=== PATIENT | female | born 1980 | race Hispanic/Latino ===

== ENCOUNTER 2019-01-10 16:56 | Inpatient (IN) | payer MEDICAID ==
[2019-01-10] MEDS ORDERED: AMBIEN PO PRN (18:41)
[2019-01-10] MEDS: MORPHINE IV PRN (23:01)
[2019-01-10] MEDS: LEVAQUIN 500MG/100ML 500 MG/100 ML BAG IV SCH (23:02)
[2019-01-10] MEDS: ZOFRAN IV PRN (23:10)
[2019-01-11] MEDS: MORPHINE IV PRN ×4 (04:11→23:29)
[2019-01-11] MEDS: ZOFRAN IV PRN (04:18)
[2019-01-11] MEDS ORDERED: ZOFRAN IV PRN (07:47)
[2019-01-11] MEDS ORDERED: LACTATED RINGERS 1,000 ML IV SCH (08:00)
[2019-01-11] MEDS ORDERED: LACTATED RINGERS 1,000 ML ONE (08:26)
--- NOTE | 2019-01-11 08:31 | Anesthesia Day of Surgery ---
Anesthesia Day of Surgery - Day of Surgery Patient Examined: Yes Patient H&P Reviewed: Yes Patient is NPO: Yes
[2019-01-11] MEDS ORDERED: OMNIPAQUE 300 MG/50 ML (CATH LAB) IV ONE (08:34)
--- NOTE | 2019-01-11 08:34 | Anesthesia Consultation ---
Anesthesia Consult and Med Hx Date of service: 01/11/19 - Airway Anesthetic Teeth Evaluation: Good ROM Head & Neck: Adequate Mental/Hyoid Distance: Inadequate Mallampati Class: Class II Intubation Access Assessment: Probably Good - Pre-Operative Health Status ASA Pre-Surgery Classification: ASA3 Proposed Anesthetic Plan: General - Pulmonary Hx Smoking: Yes Hx Asthma: No COPD: No Hx Pneumonia: No Hx Sleep Apnea: Yes - Cardiovascular System Hx Hypertension: Yes (On amlodipine) Hx Coronary Artery Disease: No Hx Percutaneous Transluminal Coronary Angioplasty (PTCA): No Hx Pacemaker: No Hx Valvular Heart Disease: No Hx Peripheral Vascular Disease: No - Central Nervous System Hx Neuromuscular Disorder: Yes (Plantar fasciitis-on Lyrica) Hx Seizures: No CVA: No Hx Psychiatric Problems: No - Gastrointestinal Hx Ulcer: No Hx Gastroesophageal Reflux Disease: No - Endocrine Hx Renal Disease: No Hx End Stage Renal Disease: No Hx Cirrhosis: No Hx Liver Disease: No Hx Hyperthyroidism: No - Hematic Hx Anemia: No Hx Sickle Cell Disease: No - Other Systems Hx Cancer: No Hx Obesity: Yes - Additional Comments Anesthesia Medical History Comments: Had hysterectomy. Has birthmark under left eye which appears as a bruise
--- NOTE | 2019-01-11 08:55 | Post Operative Note ---
Date of procedure: 01/11/19 Pre-op diagnosis: r upj stone Post-op diagnosis: same Findings: same Procedure: cysto r rpg stent Anesthesia: GETA Surgeon: SKY VILLARREAL Estimated blood loss: none Pathology: list (urine) Specimen disposition: to lab Condition: stable Disposition: PACU
--- NOTE | 2019-01-11 08:57 | Discharge Summary ---
Short Stay Discharge Plan Activity: other (no straining ) Weight Bearing Status: Full Weight Bearing Diet: low fat, low cholesterol, low salt Special Instructions: other (inc fluids ) Durable Medical Equipment Needed Upon Discharge: other (has j stent ) Follow up with: TREVON TORRES MD [Primary Care Provider] - 7 Days SKY VILLARREAL MD [Staff Physician] - 7 Days
[2019-01-11] MEDS ORDERED: NS IV ONE (09:05)
[2019-01-11] MEDS ORDERED: GENTAMICIN IV ONE (09:05)
[2019-01-11] MEDS ORDERED: SUBLIMAZE ONE ×3 (09:09→09:38)
[2019-01-11] MEDS ORDERED: DIPRIVAN 10 MG/ML IV ONE (09:09)
[2019-01-11] MEDS ORDERED: XYLOCAINE MPF 2% ONE (09:10)
[2019-01-11] MEDS ORDERED: ZOFRAN ONE (09:10)
[2019-01-11] MEDS: SUBLIMAZE IV PRN ×4 (09:18→09:51)
[2019-01-11] MEDS ORDERED: DILAUDID ONE (10:10)
[2019-01-11] MEDS: DILAUDID IV PRN ×3 (10:10→20:45)
--- NOTE | 2019-01-11 10:22 | Operative Report ---
PREOPERATIVE DIAGNOSES: Severe right flank pain, intermittent nausea and vomiting, right renal obstruction. POSTOPERATIVE DIAGNOSES: Severe right flank pain, intermittent nausea and vomiting, right renal obstruction. PROCEDURES: Cystoscopy, right retrograde, right double-J stent. SURGEON: Brandon Santos MD ANESTHESIA: General. FINDINGS: This is a woman who presented yesterday with severe pain, nausea and vomiting and intermittent chills. She was admitted to the hospital, now presents for stent. She is afebrile. DESCRIPTION OF PROCEDURE: The patient was brought to the operating room and placed on the operating table. Following induction of anesthesia, placed in lithotomy position, prepped and draped in usual sterile fashion. Cystourethroscopy showed some debris in the bladder. A right retrograde was done, showed a UPJ stone on the right side. Stone was well visualized. A wire coiled in the kidney. There was a little bit of an angulation at the ureterovesical junction. We used an angled-tip open-ended catheter. A stent coiled in the kidney and bladder. The patient tolerated the procedure well. Urine was obtained for culture, brought to recovery room in stable condition. JOB# [id number] KHALIF/VIRY
[2019-01-11] MEDS ORDERED: GENTAMICIN 160 MG in NACL 0.9% 100 ML IV SCH (10:30)
--- NOTE | 2019-01-11 11:16 | Post Anesthesia Evaluation ---
- Post Anesthesia Evaluation Patient Participated: Yes Airway Patent: Yes Stable Respiratory Function: Yes Nausea/Vomiting: No Temp > 96.8F: Yes Pain Manageable: Yes Adequeate Hydration: Yes Anesthesia Complications: No Block Receding Appropriately: Not Applicable Patient on Ventilator: No
[2019-01-11] MEDS ORDERED: DILAUDID IV PRN (13:33)
[2019-01-11] MEDS ORDERED: DILAUDID IV ONE (13:35)
--- NOTE | 2019-01-11 17:49 | Cat Scan Report ---
CT abdomen pelvis wo con INDICATION / CLINICAL INFORMATION: verify stent placement, abdominal pain. TECHNIQUE: Noncontrast CT of the abdomen and pelvis with multiplanar reformats. All CT scans at this location ar e performed using CT dose reduction for ALARA by means of automated exposure control. COMPARISON: None FINDINGS: A double-J ureteral stent extends from the right renal pelvis to the bladder, with the distal pigtail coiled adjacent to the ureteral orifice. A 0.9 cm calculus is seen higher in the collecting system o f the right kidney. No left renal or ureteral calculi. No bladder calculus. Within the limitations imposed by noncontrast technique, the liver, spleen, pancreas, and adrenals ar e unremarkable. The gallbladder is surgically absent. No abnormality of significance is detected in the stomach, small or large bowel. The appendix is norm al. No free abdominal or pelvic fluid. No organized fluid collection or pneumoperitoneum. The uterus is s urgically absent. No abnormal adnexal mass. IMPRESSION: 1. Right renal calculus. Double-J ureteral stent is in satisfactory position. Signer Name: Jose L Kendall MD Signed: 01/11/2019 5:44 PM Workstation Name: [id number]
[2019-01-11] MEDS: LEVAQUIN 500MG/100ML 500 MG/100 ML BAG IV SCH (20:45)
[2019-01-11] MEDS: DITROPAN PO SCH (23:37)
[2019-01-12] MEDS: DILAUDID IV PRN ×3 (02:13→13:06)
[2019-01-12] MEDS: DITROPAN PO SCH ×2 (08:43→13:06)
[2019-01-12] MEDS: MORPHINE IV PRN ×2 (10:11→15:51)
[2019-01-12] MEDS: ZOFRAN IV PRN (12:08)
[2019-01-12] MEDS ORDERED: PYRIDIUM PO SCH (15:00)
--- NOTE | 2019-01-12 15:00 | Consultation ---
History of Present Illness - Reason for Consult Consult date: 01/12/19 Possible nephrostomy tube - History of Present Illness 38 year old female who presented with right sided UPJ stone with UTI. Status post ureteral stenting by Dr. Santos. Has pain in the left flank, dysuria, and lower pelvic discomfort after the procedure. Wants the "stent out". Vascular and interventional radiology consulted. Past History Past Medical History: hypertension, other (TITUS with bipap ; morbid obesity ; plantar fascitis) Past Surgical History: hysterectomy Social history: smoking Family history: no significant family history Medications and Allergies Allergies Allergy/AdvReac Type Severity Reaction Status Date / Time amoxicillin AdvReac Shortness Verified 01/10/19 17:08 of Breath, HIVES, RASH, SWELLING clavulanic acid AdvReac Shortness Verified 01/10/19 17:08 [From Augmentin] of Breath, RASH, HIVES , Penicillins AdvReac Shortness Verified 01/10/19 17:09 of Breath, HIVES, RASH, SWELLING Home Medications Medication Instructions Recorded Confirmed Last Taken Type Ciprofloxacin HCl [Ciprofloxacin 500 mg PO BID 01/12/19 01/12/19 Unknown History TAB] Cyclobenzaprine [Flexeril 10 MG 1 tab PO TID 01/12/19 01/12/19 Unknown History TAB] Gabapentin [Neurontin] 300 mg PO Q8HR 01/12/19 01/12/19 Unknown History Ibuprofen [Motrin] 800 mg PO Q8HR PRN 01/12/19 01/12/19 Unknown History Ketorolac [Toradol] 10 mg PO Q12H PRN 01/12/19 01/12/19 Unknown History [place] 5-325 mg TAB 1 tab PO Q8HR 01/12/19 01/12/19 Unknown History Tamsulosin 0.4 mg PO HS 01/12/19 01/12/19 Unknown History amLODIPine 10 mg PO DAILY 01/12/19 01/12/19 Unknown History levoFLOXacin [Levofloxacin] 500 mg PO DAILY 01/12/19 01/12/19 Unknown History Active Meds: Active Medications Hydromorphone HCl (Dilaudid) 1 mg IV Q6H PRN PRN Reason: Pain , Severe (7-10) Last Admin: 01/12/19 13:06 Dose: 1 mg Documented by: Levofloxacin/Dextrose (Levaquin 500mg/100ml) 500 mg in 100 mls @ 100 mls/hr IV Q24H ROSALINDA; Protocol Last Admin: 01/11/19 20:45 Dose: 100 mls/hr Documented by: Lactated Ringer's (Lactated Ringers) 1,000 mls @ 125 mls/hr IV DIRECT ROSALINDA Last Admin: 01/11/19 20:50 Dose: 125 mls/hr Documented by: Morphine Sulfate (Morphine) 2 mg IV Q6H PRN PRN Reason: Pain, Moderate (4-6) Last Admin: 01/12/19 10:11 Dose: 2 mg Documented by: Ondansetron HCl (Zofran) 8 mg IV Q8HR PRN PRN Reason: NAUSEA & VOMITING Last Admin: 01/12/19 12:08 Dose: 4 mg Documented by: Oxybutynin Chloride (Ditropan) 5 mg PO TID ROSALINDA Last Admin: 01/12/19 13:06 Dose: 5 mg Documented by: Phenazopyridine HCl (Pyridium) 200 mg PO Q8HR ROSALINDA Zolpidem Tartrate (Ambien) 10 mg PO QHS PRN PRN Reason: Insomnia Last Admin: 01/10/19 23:02 Dose: 10 mg Documented by: Review of Systems All systems: negative (see HPI) Exam - Constitutional Vitals: Temp Pulse Resp BP Pulse Ox 97.6 F 79 18 111/75 95 01/12/19 11:58 01/12/19 11:58 01/12/19 11:58 01/12/19 11:58 01/12/19 11:58 General appearance: Present: no acute distress - EENT Eyes: Present: EOM intact ENT: hearing intact - Respiratory Respiratory effort: normal - Abdominal General gastrointestinal: Present: other (pelvic pain, left flank pain) - Psychiatric Psychiatric: appropriate mood/affect, cooperative Assessment and Plan 38 year old female with UTI and right renal stone status post right ureteral stent. Do not recommend percutaneous nephrostomy tube placement with indwelling ureteral stent. The kidney is decompressed and the patient is severely morbidly obese both of which may percutaneous nephrostomy incredibly difficult and really only appropriate for a failed stent placement or possibly for a PCNL access. Left flank pain preceded symptoms and is unlikely to be related to ureteral stent placement. ?LBP Patient is complaining of dysuria, and bladder discomfort. Recommend pyridine, follow-up with urologist for lithotripsy, and ultimately stent removal once stone has been removed. Do not recommend nephrostomy tube placement.
[2019-01-12 17:00] VITALS: BP 128/63
== END 2019-01-12 16:15 | disposition home or self-care (01) | DRG 690 ==
LOC: 3A 16:56 → UNDOADMIN 16:56 → 3B-SURG 20:53
PROVIDERS: ADMIT Urology; ATTEND Urology
PROC: 0T768DZ Dilation of Right Ureter with Intraluminal Device, Via Natural or Artificial Opening Endoscopic (ICD-10-PCS; principal; 2019-01-11)
PROC: BT1D1ZZ Fluoroscopy of Right Kidney, Ureter and Bladder using Low Osmolar Contrast (ICD-10-PCS; 2019-01-11)
DX: N13.6 Pyonephrosis (principal); I10 Essential (primary) hypertension; G47.33 Obstructive sleep apnea (adult) (pediatric); E66.01 Morbid (severe) obesity due to excess calories; Z68.41 Body mass index [BMI] 40.0-44.9, adult; Z90.710 Acquired absence of both cervix and uterus; Z88.1 Allergy status to other antibiotic agents; Z88.0 Allergy status to penicillin; Z88.8 Allergy status to other drugs, medicaments and biological substances; Z79.899 Other long term (current) drug therapy
CPT/HCPCS: 74176; 74420; 87086; G0378; C1758; C1769; C2617; J1170; J1580; J1956; J2270; J2405; J2704; J3010; J7120; Q9967

== ENCOUNTER 2019-05-23 22:31 | Emergency (ER) | payer MEDICAID ==
[2019-05-24 04:24] LABS: Basophils # (Auto) 0.1 K/mm3 (0.0-0.1); Basophils % (Auto) 0.6 % (0.0-1.8); Eosinophils # (Auto) 0.2 K/mm3 (0.0-0.4); Eosinophils % (Auto) 2.3 % (0.0-4.3); Hematocrit 38.7 % (30.3-42.9); Hemoglobin 13.6 gm/dl (10.1-14.3); Mean Corpuscular HGB Conc 35 % (30-34); Mean Corpuscular Volume 89 fl (79-97); Monocytes # (Auto) 0.6 K/mm3 (0.0-0.8); Monocytes % (Auto) 6.6 % (0.0-7.3); Platelet Count 176 K/mm3 (140-440); Red Blood Count 4.33 M/mm3 (3.65-5.03); Red Cell Distribution Width 13.2 % (13.2-15.2)
[2019-05-24 04:29] VITALS: BP 139/71
[2019-05-24 04:50] LABS: Alanine Aminotransferase 15 units/L (7-56); Albumin 4.2 g/dL (3.9-5); BUN/Creatinine Ratio 19; Blood Urea Nitrogen 15 mg/dL (7-17); Hemolysis Index 7
[2019-05-24] MEDS ORDERED: KETOROLAC 30 MG/1 ML INJ IV ONE (05:06)
[2019-05-24] MEDS ORDERED: SODIUM CHLORIDE 0.9% 1000 ML 2,000 ML IV ONE (05:06)
[2019-05-24] MEDS ORDERED: ONDANSETRON 4 MG/2 ML INJ IV ONE (05:07)
--- NOTE | 2019-05-24 05:10 | Emergency Department Report ---
ED Abdominal Pain HPI - General Chief Complaint: Abdominal Pain Stated Complaint: PAINFUL URINATION Time Seen by Provider: 05/24/19 03:44 Source: patient Mode of arrival: Ambulatory Limitations: No Limitations - History of Present Illness Complaint: abdominal pain -: Gradual, days(s) Location: R flank Radiation: none Migration to: no migration, suprapubic Severity: mild Severity scale (0 -10): 2 Quality: aching Consistency: intermittent Improves With: nothing Worsens With: nothing Context: other (Reports hx of kidney stones. Reports symptoms feel similar to past kidney stone attacks. Reports hx of being discharged from the ER to home with a urine mathis because of urinary retention. Reports followed by Dr. Villarreal urology) Associated Symptoms: nausea, other (decreased urine output). denies: vomiting, diarrhea, fever, chills, constipation, dysuria, hematemesis, hematochezia, melena, hematuria, anorexia, syncope - Related Data Home Medications Medication Instructions Recorded Confirmed Last Taken Ciprofloxacin HCl [Ciprofloxacin 500 mg PO BID 01/12/19 01/12/19 Unknown TAB] Cyclobenzaprine [Flexeril 10 MG 1 tab PO TID 01/12/19 01/12/19 Unknown TAB] Gabapentin [Neurontin] 300 mg PO Q8HR 01/12/19 01/12/19 Unknown Ibuprofen [Motrin] 800 mg PO Q8HR PRN 01/12/19 01/12/19 Unknown Ketorolac [Toradol] 10 mg PO Q12H PRN 01/12/19 01/12/19 Unknown [place] 5-325 mg TAB 1 tab PO Q8HR 01/12/19 01/12/19 Unknown Tamsulosin 0.4 mg PO HS 01/12/19 01/12/19 Unknown amLODIPine 10 mg PO DAILY 01/12/19 01/12/19 Unknown levoFLOXacin [Levofloxacin] 500 mg PO DAILY 01/12/19 01/12/19 Unknown Previous Rx's Medication Instructions Recorded Last Taken Type HYDROcodone/APAP 5-325 [[place] 1 each PO Q6HR PRN #8 tablet 05/24/19 Unknown Rx 5/325] Ibuprofen [Motrin 600 MG tab] 600 mg PO Q6H PRN #24 tablet 05/24/19 Unknown Rx Phenazopyridine [Pyridium] 200 mg PO TID #6 tab 05/24/19 Unknown Rx Sulfamethoxazole/Trimethoprim 1 each PO BID #14 tablet 05/24/19 Unknown Rx [Bactrim DS TAB] Tamsulosin [Flomax] 0.4 mg PO QDAY #14 cap 05/24/19 Unknown Rx Allergies Allergy/AdvReac Type Severity Reaction Status Date / Time amoxicillin Allergy Anaphylaxis Verified 05/23/19 22:33 clavulanic acid Allergy Anaphylaxis Verified 05/23/19 22:33 [From Augmentin] Penicillins Allergy Anaphylaxis Verified 05/23/19 22:33 ED Review of Systems ROS: Stated complaint: PAINFUL URINATION Other details as noted in HPI Other: GENERAL: No weight change, fatigue, fever, chills, or night sweats SKIN: No changes in skin or hair, no itching, no rashes, no jaundice HEAD: No trauma EYES: No blurriness, tearing, itching, acute visual loss, conjunctival discoloration, or scleral icterus EARS: No hearing loss, tinnitus, vertigo, or earache NOSE: No rhinorrhea, stuffiness, sneezing, itching, or epistaxis MOUTH: No bleeding gums, hoarseness, sore throat, or swelling CARDIAC: No new murmur, chest pain, palpitations, dyspnea on exertion, orthopnea, PND, or edema RESPIRATORY: No shortness of breath, wheeze, cough, sputum production, hemoptysis GI: Right flank pain. nausea. Denies vomiting, dysphagia, diarrhea, constipation, hematemesis, melena, hematochezia URINARY: Decreased urine output. No frequency, urgency, polyuria, dysuria, hematuria, or incontinence MUSCULOSKELETAL: No muscle weakness, joint stiffness, decrease in range of motion, redness, swelling NEUROLOGIC: No headache, syncope, loss of sensation, numbness, tingling, tremors, weakness, paralysis, seizures HEMATOLOGIC: No anemia, easy bruising, bleeding, petechiae, or purpura ENDOCRINE: No hot or cold intolerance, sweating, polyuria, polydipsia or, polyphagia no thyroid problems PSYCHIATRIC: No change in mood, no anxiety, no depression ED Past Medical Hx - Past Medical History Previous Medical History?: Yes Hx Hypertension: Yes (On amlodipine) Hx Congestive Heart Failure: No Hx Diabetes: No Hx Deep Vein Thrombosis: No Hx Liver Disease: No Hx Renal Disease: No Hx Sickle Cell Disease: No Hx Arthritis: No Hx Seizures: No Hx Kidney Stones: Yes Hx Asthma: Yes Hx COPD: No Hx Tuberculosis: No Hx Dementia: No Hx HIV: No - Surgical History Past Surgical History?: Yes Hx Coronary Stent: No Hx Open Heart Surgery: No Hx Pacemaker: No Hx Cholecystectomy: Yes Hx Appendectomy: No Hx Breast Surgery: No Additional Surgical History: Lithrotripsy, Hysterectomy, Left rotator cuff repair - Social History Smoking Status: Current Every Day Smoker Substance Use Type: None - Medications Home Medications: Home Medications Medication Instructions Recorded Confirmed Last Taken Type Ciprofloxacin HCl [Ciprofloxacin 500 mg PO BID 01/12/19 01/12/19 Unknown History TAB] Cyclobenzaprine [Flexeril 10 MG 1 tab PO TID 01/12/19 01/12/19 Unknown History TAB] Gabapentin [Neurontin] 300 mg PO Q8HR 01/12/19 01/12/19 Unknown History Ibuprofen [Motrin] 800 mg PO Q8HR PRN 01/12/19 01/12/19 Unknown History Ketorolac [Toradol] 10 mg PO Q12H PRN 01/12/19 01/12/19 Unknown History [place] 5-325 mg TAB 1 tab PO Q8HR 01/12/19 01/12/19 Unknown History Tamsulosin 0.4 mg PO HS 01/12/19 01/12/19 Unknown History amLODIPine 10 mg PO DAILY 01/12/19 01/12/19 Unknown History levoFLOXacin [Levofloxacin] 500 mg PO DAILY 01/12/19 01/12/19 Unknown History HYDROcodone/APAP 5-325 [[place] 1 each PO Q6HR PRN #8 tablet 05/24/19 Unknown Rx 5/325] Ibuprofen [Motrin 600 MG tab] 600 mg PO Q6H PRN #24 tablet 05/24/19 Unknown Rx Phenazopyridine [Pyridium] 200 mg PO TID #6 tab 05/24/19 Unknown Rx Sulfamethoxazole/Trimethoprim 1 each PO BID #14 tablet 05/24/19 Unknown Rx [Bactrim DS TAB] Tamsulosin [Flomax] 0.4 mg PO QDAY #14 cap 05/24/19 Unknown Rx ED Physical Exam - General Limitations: No Limitations - Other Other exam information: GENERAL: Patient in no acute distress HEAD: Normocephalic, atraumatic EYES: PERRLA, EOM intact, no scleral icterus, no conjunctival hemorrhage, visual reyes and acuity wnl NOSE: No tenderness, discharge, sinus tenderness MOUTH: No erythema, bleeding, exudate HEART: Regular rate and rhythm, no murmur, S1-S2 are auscultated, no edema, puls es are symmetric LUNGS: No respiratory distress. Bilateral breath sounds, No tachypnea, No retractions, No wheezing, rales, rhonchi ABDOMEN: Normal bowel sounds, abdomen soft, no tenderness, no rebound, no guarding, no distention, no masses, no CVA tenderness MUSCULOSKELETAL: Normal joint range of motion, no redness, no swelling, no tenderness NEUROLOGIC: GCS 15, Alert and Oriented x3, Cranial nerves intact, normal sensation, normal strength, no cerebellar deficit, NIHSS 0 SKIN: Skin is warm and dry, no wounds, no rashes ED Course Vital Signs 05/23/19 05/24/19 05/24/19 22:37 03:36 03:45 Temperature 98.9 F Pulse Rate 103 H 86 88 Respiratory 20 15 19 Rate Blood Pressure 169/105 137/74 Blood Pressure [Right] O2 Sat by Pulse 98 95 97 Oximetry 05/24/19 05/24/19 05/24/19 03:51 03:55 04:00 Temperature Pulse Rate 90 91 H Respiratory 18 17 27 H Rate Blood Pressure 139/86 Blood Pressure 137/74 [Right] O2 Sat by Pulse 100 94 Oximetry 05/24/19 04:15 Temperature Pulse Rate 84 Respiratory 16 Rate Blood Pressure 139/71 Blood Pressure [Right] O2 Sat by Pulse 96 Oximetry ED Medical Decision Making - Lab Data Result diagrams: 05/24/19 04:11 05/24/19 04:11 Laboratory Results - last 24 hr 05/24/19 05/24/19 05/24/19 04:11 04:11 04:11 WBC 9.6 RBC 4.33 Hgb 13.6 Hct 38.7 MCV 89 MCH 31 MCHC 35 H RDW 13.2 Plt Count 176 Lymph % (Auto) 31.0 [place] % (Auto) 6.6 Eos % (Auto) 2.3 Baso % (Auto) 0.6 Lymph # 3.0 [place] # 0.6 Eos # 0.2 Baso # 0.1 Seg Neutrophils % 59.5 Seg Neutrophils # 5.7 Sodium 144 Potassium 4.1 Chloride 107.7 H Carbon Dioxide 20 L Anion Gap 20 BUN 15 Creatinine 0.8 Estimated GFR > 60 BUN/Creatinine Ratio 19 Glucose 108 H Calcium 9.0 Total Bilirubin 0.20 AST 12 ALT 15 Alkaline Phosphatase 95 Total Protein 7.0 Albumin 4.2 Albumin/Globulin Ratio 1.5 Lipase 33 HCG, Qual Negative - Radiology Data Radiology results: report reviewed - Medical Decision Making Patient comfortable. Reports symptom improvement. Patient urinating in the er. Updated with results. Plan discharge with outpatient follow up. Return if any worsening. Critical care attestation.: If time is entered above; I have spent that time in minutes in the direct care of this critically ill patient, excluding procedure time. ED Disposition Clinical Impression: Right kidney stone Disposition: - TO HOME OR SELFCARE Is pt being admited?: No Condition: Stable Instructions: Kidney Stones (ED) Prescriptions: Sulfamethoxazole/Trimethoprim [Bactrim DS TAB] 1 each PO BID #14 tablet Tamsulosin [Flomax] 0.4 mg PO QDAY #14 cap Ibuprofen [Motrin 600 MG tab] 600 mg PO Q6H PRN #24 tablet PRN Reason: Pain HYDROcodone/APAP 5-325 [[place] 5/325] 1 each PO Q6HR PRN #8 tablet PRN Reason: Pain Phenazopyridine [Pyridium] 200 mg PO TID #6 tab Referrals: TREVON TORRES MD [Primary Care Provider] - 2-3 Days SKY VILLARREAL MD [Staff Physician] - 2-3 Days Forms: Work/School Release Form(ED) Time of Disposition: 05:48
[2019-05-24] MEDS ORDERED: PHENAZOPYRIDINE 100 MG TAB PO ONE (05:26)
--- NOTE | 2019-05-24 05:41 | Cat Scan Report ---
CT of the abdomen and pelvis without contrast INDICATION: Right flank pain COMPARISON: 01/11/2019 FINDINGS: Lung bases are clear. The liver, spleen, pancreas, adrenal glands and left kidney appear no rmal. Gallbladder has been removed. No biliary tree dilation. There are multiple right renal calculi present with mild to moderate right hydronephrosis. No gross renal masses. Appendix is seen in the mi dabdomen and is normal. There is a 3 mm stone at the right UPJ causing the moderate obstruction. CT of the pelvis shows the distal right ureter be normal. No stone fragments seen in the bladder. No diverticulosis or diverticulitis. Uterus has been removed. No pelvic fluid or adenopathy. No signific ant skeletal lesion. IMPRESSION: Right nephrolithiasis with a 3 mm right UPJ stone causing moderate distraction. Automated exposure control was utilized to diminish radiation dose. Signer Name: Mathew Lorenzo MD Signed: 05/24/2019 5:37 AM Workstation Name: [id number]
[2019-05-24] MEDS ORDERED: TAMSULOSIN 0.4 MG CAP PO ONE (05:45)
[2019-05-24] MEDS ORDERED: HYDROcodone/ACETAMINOPHEN 7.5-325MG TAB PO ONE (06:19)
[2019-05-24 07:11] LABS: Bilirubin,Urine NEG (Negative); Blood,Urine SM (Negative); Color,Urine Yellow (Yellow); Mucus,Urine FEW /HPF; Protein,Urine <15 mg/dL mg/dL (Negative); Urobilinogen,Urine < 2.0 mg/dL (<2.0)
== END 2019-05-24 07:03 | disposition home or self-care (01) ==
LOC: ED 22:31
DX: N20.0 Calculus of kidney (principal); I10 Essential (primary) hypertension; J45.909 Unspecified asthma, uncomplicated; Z98.51 Tubal ligation status; Z90.49 Acquired absence of other specified parts of digestive tract; Z79.1 Long term (current) use of non-steroidal anti-inflammatories (NSAID); Z79.899 Other long term (current) drug therapy; Z88.1 Allergy status to other antibiotic agents; Z88.0 Allergy status to penicillin; Z88.8 Allergy status to other drugs, medicaments and biological substances
CPT/HCPCS: 36415; 74176; 80053; 81001; 83690; 84703; 85025; 87086; 96374; 96375; 99284; J1885; J2405; J7030; 96361

== ENCOUNTER 2019-11-04 09:54 | Day surgery (SDC) | payer MEDICAID ==
[2019-11-04] MEDS ORDERED: LACTATED RINGERS 1,000 ML ONE (10:47)
--- NOTE | 2019-11-04 11:06 | Anesthesia Day of Surgery ---
Anesthesia Day of Surgery - Day of Surgery Patient Examined: Yes Patient H&P Reviewed: Yes Patient is NPO: Yes
--- NOTE | 2019-11-04 11:09 | Anesthesia Consultation ---
Anesthesia Consult and Med Hx Date of service: 11/04/19 - Airway Anesthetic Teeth Evaluation: Good ROM Head & Neck: Adequate Mental/Hyoid Distance: Adequate Mallampati Class: Class II Intubation Access Assessment: Good - Pre-Operative Health Status ASA Pre-Surgery Classification: ASA3 Proposed Anesthetic Plan: General - Pulmonary Hx Smoking: Yes Hx Asthma: Yes (+2FS) COPD: No Hx Pneumonia: No Hx Sleep Apnea: Yes - Cardiovascular System Hx Hypertension: Yes (On amlodipine) Hx Coronary Artery Disease: No Hx Percutaneous Transluminal Coronary Angioplasty (PTCA): No Hx Pacemaker: No Hx Valvular Heart Disease: No Hx Peripheral Vascular Disease: No - Central Nervous System Hx Neuromuscular Disorder: Yes (Plantar fasciitis) Hx Seizures: No CVA: No Hx Psychiatric Problems: No - Gastrointestinal Hx Ulcer: No Hx Gastroesophageal Reflux Disease: No - Endocrine Hx Renal Disease: Yes (Stones) Hx End Stage Renal Disease: No Hx Cirrhosis: No Hx Liver Disease: No Hx Hyperthyroidism: No - Hematic Hx Anemia: No Hx Sickle Cell Disease: No - Other Systems Hx Cancer: No Hx Obesity: Yes
[2019-11-04] MEDS ORDERED: fentaNYL 100 MCG/2 ML INJ IV PRN (11:10)
[2019-11-04] MEDS ORDERED: ONDANSETRON 4 MG/2 ML INJ IV PRN (11:10)
[2019-11-04] MEDS ORDERED: KETOROLAC 30 MG/1 ML INJ IV NR (11:10)
[2019-11-04] MEDS ORDERED: MAGNESIUM OXIDE 400 MG TAB PO NR (11:10)
[2019-11-04] MEDS ORDERED: ACETAMINOPHEN 500 MG TAB PO NR (11:10)
[2019-11-04] MEDS ORDERED: MIDAZOLAM 2 MG/2 ML INJ IV NR (12:00)
[2019-11-04] MEDS ORDERED: LACTATED RINGERS 1,000 ML IV SCH (12:00)
[2019-11-04] MEDS ORDERED: HYDROmorphone 1 MG/1 ML INJ ONE ×2 (12:21→12:52)
[2019-11-04] MEDS ORDERED: propofoL 200 MG/20 ML VIAL IV ONE (12:21)
[2019-11-04] MEDS ORDERED: LIDOCAINE MPF (2%) 20 MG/1 ML VIAL 5 ML ONE (12:21)
[2019-11-04] MEDS ORDERED: WATER FOR IRRIG STERILE 2000 ML IR ONE (12:43)
[2019-11-04] MEDS ORDERED: IOHEXOL 300 MG/ML 50ML IV ONE (12:47)
[2019-11-04] MEDS ORDERED: SUCCINYLCHOLINE CHLORIDE 200 MG/10 ML INJ MDV ONE (13:11)
--- NOTE | 2019-11-04 13:16 | Post Operative Note ---
Date of procedure: 11/04/19 Pre-op diagnosis: r renal stones Post-op diagnosis: same Findings: stones Procedure: cysto stent ureteroscpoy Anesthesia: DOA Surgeon: SKY VILLARREAL Estimated blood loss: none Pathology: none Condition: stable Disposition: PACU
[2019-11-04] MEDS ORDERED: GENTAMICIN/NS 80 MG/100 ML 100 ML IV ONE (13:17)
--- NOTE | 2019-11-04 13:17 | Discharge Summary ---
Short Stay Discharge Plan Activity: other (inc fluidas no straining ) Weight Bearing Status: Full Weight Bearing Diet: low cholesterol, low salt Special Instructions: other (has stent ) Durable Medical Equipment Needed Upon Discharge: other (stent) Follow up with: TREVON TORRES MD [Primary Care Provider] - 7 Days SKY VILLARREAL MD [Staff Physician] - 7 Days
[2019-11-04] MEDS ORDERED: GENTAMICIN 160 MG in SODIUM CHLORIDE 0.9% 100 ML IV SCH (13:45)
--- NOTE | 2019-11-04 14:33 | Operative Report ---
PREOPERATIVE DIAGNOSES: Severe right ureteral colic, right renal colic and hydronephrosis and pain. POSTOPERATIVE DIAGNOSES: Severe right ureteral colic, right renal colic and hydronephrosis and pain. PROCEDURE: Cystoscopy, right retrograde ureteroscopy, J stent. SURGEON: Dr. Santos. ANESTHESIA: General. FINDINGS: This is a woman with severe pain. She had a 4 mm stone. She has a mild UPJ narrowing. She has stones in the lower pole as well. DESCRIPTION OF PROCEDURE: The patient was brought to the operating room and placed on the operating table. Following induction of anesthesia, placed in lithotomy position, prepped and draped in usual sterile fashion. Cystourethroscopy was made difficult because of her heavy breathing. She is heavy and there was movement. We were able to get a wire up in the kidney, but the retrograde showed that there was debris and the stone in the distal ureter with hydroureteronephrosis. Ureteroscopy after balloon dilatation showed some gravel. A distinct stone was not seen. We did not see the 4 mm stone. We placed an open-ended to the UPJ, did not see the 4 mm stone. The dye went into a slightly dilated extrarenal pelvis. Stone was in the lower pole. The patient tolerated the procedure well. A J stent coiled in the lower pole of kidney. She was brought to recovery in stable condition. JOB# [id number] KHALIF/VIRY
[2019-11-04 15:41] VITALS: BP 133/76
--- NOTE | 2019-11-04 15:47 | Fluoroscopy Report ---
FL retrograde urography, [place] ureter/nephrostomy dilat RT INDICATION / CLINICAL INFORMATION: RT RENAL STONE. COMPARISON: None available. FINDINGS: Injection of the bladder and right ureter with balloon dilatation of the distal right ureter and doub le-J stent placement. Fluoroscopy time: 1 minute, 37 seconds. Fluoroscopic images: 9. Signer Name: Teddy Cunningham MD Signed: 11/04/2019 3:42 PM Workstation Name: [id number]
== END 2019-11-04 09:55 | disposition home or self-care (01) ==
LOC: OR 09:54
PROVIDERS: ATTEND Urology
DX: N13.2 Hydronephrosis with renal and ureteral calculous obstruction (principal); F17.210 Nicotine dependence, cigarettes, uncomplicated; I10 Essential (primary) hypertension; J45.909 Unspecified asthma, uncomplicated; E66.9 Obesity, unspecified; Z90.49 Acquired absence of other specified parts of digestive tract; Z90.710 Acquired absence of both cervix and uterus; Z88.0 Allergy status to penicillin; Z88.6 Allergy status to analgesic agent; Z79.899 Other long term (current) drug therapy; Z98.891 History of uterine scar from previous surgery; Z98.890 Other specified postprocedural states; Z68.41 Body mass index [BMI] 40.0-44.9, adult
CPT/HCPCS: 52332; 74420; 74485; A4217; C1726; C1758; C1769; C2617; J0330; J1170; J1580; J1885; J1956; J2250; J2405; J2704; J7120; Q9967

== ENCOUNTER 2019-11-13 17:49 | Emergency (ER) | payer MEDICAID ==
--- NOTE | 2019-11-13 19:44 | Event Note ---
ED Screening Note ED Screening Note: had a ureteral stent placed two weeks ago Dr. Santos, she called his office and he advised pt to come to the ED, she states that he told her the stent was supposed to come out one week post op states that she does not have any appt til december 21 nephrolithiasis had a UTI finished abx a week ago, does not know what she took states she has lower back pain and abd pain +dysuria +decreased urination +subjective fever +n/v PMHx HTN, sleep apnea allergy: PCNs PSHx full hysterectomy This initial assessment/diagnostic orders/clinical plan/treatment(s) is/are subject to change based on patients health status, clinical progression and re- assessment by fellow clinical providers in the ED. Further treatment and workup at subsequent clinical providers discretion. Patient/guardian urged not to elope from the ED as their condition may be serious if not clinically assessed and managed. Initial orders include: labs, UA, CT abd pelvis
[2019-11-13 20:02] LABS: Bacteria,Urine 1+ /HPF (Negative); Bilirubin,Urine NEG (Negative); Blood,Urine SM (Negative); Color,Urine Amber (Yellow); Mucus,Urine FEW /HPF; Protein,Urine <15 mg/dL mg/dL (Negative)
[2019-11-13 20:16] LABS: Basophils % (Auto) 0.5 % (0.0-1.8); Eosinophils # (Auto) 0.1 K/mm3 (0.0-0.4); Eosinophils % (Auto) 1.4 % (0.0-4.3); Hematocrit 39.2 % (30.3-42.9); Hemoglobin 13.5 gm/dl (10.1-14.3); Lymphocytes # (Auto) 2.2 K/mm3 (1.2-5.4); Lymphocytes % (Auto) 22.5 % (13.4-35.0); Mean Corpuscular HGB Conc 34 % (30-34); Mean Corpuscular Volume 91 fl (79-97); Monocytes # (Auto) 0.5 K/mm3 (0.0-0.8); Monocytes % (Auto) 5.2 % (0.0-7.3); Platelet Count 297 K/mm3 (140-440); Red Blood Count 4.33 M/mm3 (3.65-5.03); Red Cell Distribution Width 13.6 % (13.2-15.2)
[2019-11-13 20:30] LABS: Alanine Aminotransferase 36 units/L (7-56); Albumin 4.2 g/dL (3.9-5); BUN/Creatinine Ratio 16; Blood Urea Nitrogen 11 mg/dL (7-17); Calcium 9.2 mg/dL (8.4-10.2); Hemolysis Index 3
--- NOTE | 2019-11-13 20:42 | Cat Scan Report ---
CT ABDOMEN AND PELVIS WITHOUT CONTRAST HISTORY: Flank pain, nausea, vomiting, fever COMPARISON: CT of the abdomen and pelvis on 05/24/2019. TECHNIQUE: Routine abdominal and pelvic CT exam performed without contrast. Lack of intravenous cont rast limits evaluation of the vascular and solid organs.. All CT scans at this location are performed using CT dose reduction for ALARA by means of automated exposure control. FINDINGS: CT ABDOMEN: Lung Bases: No significant abnormality. Liver: No significant abnormality. Biliary: Gallbladder is surgically absent. Spleen: No significant abnormality. Unenlarged. Pancreas: No significant abnormality. Adrenals: No significant abnormality. Kidneys: Right ureteral stent is in place, without significant hydronephrosis. There are multiple rig ht intrarenal stones measuring up to 6 mm. Left kidney appears normal. Lymphatics: No lymphadenopathy. Vasculature: No significant abnormality. Bowel/Peritoneum: No significant abnormality. No free air. No free fluid. Normal appendix. CT PELVIC: : No significant abnormality. Lymphatics: No lymphadenopathy. Osseous Structures: No aggressive appearing osseous lesions. Additional Findings: None IMPRESSION: 1. Right ureteral stent appears appropriately positioned without hydronephrosis. There are multiple r ight intrarenal stones. 2. No additional significant abnormality. Signer Name: Germán Kimball MD Signed: 11/13/2019 8:38 PM Workstation Name: [id number]
--- NOTE | 2019-11-13 21:45 | Emergency Department Report ---
ED General Adult HPI - General Chief complaint: Urogenital-Female Stated complaint: F/N/PAIN WITH PEEING PUI?: No Time Seen by Provider: 11/13/19 19:41 Source: patient, RN notes reviewed, old records reviewed Mode of arrival: Ambulatory Limitations: No Limitations - History of Present Illness Initial comments: The patient is a 39-year-old female. She is not known to myself previously. Her urologist is Dr.: Dr Julio C Swartz Primary care doctor: Dr Webb Past medical history: Obesity, hypertension, hysterectomy, chronic renal colic, and at the end of October, her private urologist took her to the operating room, performed a cystoscopy, right retrograde ureteroscopy, and placed a J stent. She also had a dilatation performed. She was discharged on Levaquin antibiotic. She received periprocedural gentamicin. Patient states that when she was discharged, she was instructed to follow-up with her outpatient neurologist within 7 days for reassessment of stent placement and possible stent removal. However, she subsequently reports that because of a possible era with the clerical or administrative team, her follow- up appointment was not scheduled until December. Today, she presents to the ER with sharp throbbing right flank pain that moved to the right lower quadrant, nausea vomiting, fever yesterday to 102 degrees. There is no headache, neck pain, chest pain, left-sided abdominal pain, cough, loss of taste or smell, denies exposure to COVID/coronavirus. She also describes dysuria, and urinary frequency. There are no extremity complaints. She endorses compliance with her antibiotics. She reports that she was instructed by her outpatient urologist to present to the emergency room. -: Gradual, days(s) Location: back Radiation: abdomen Quality: stabbing, aching Consistency: intermittent Improves with: medication, rest Worsens with: movement - Related Data Home Medications Medication Instructions Recorded Confirmed Last Taken Cyclobenzaprine [Flexeril 10 MG 1 tab PO PRN PRN 01/12/19 11/14/19 Unknown TAB] [place] 5-325 mg TAB 1 tab PO Q8HR 01/12/19 11/14/19 Unknown amLODIPine 10 mg PO DAILY 01/12/19 11/14/19 11/04/19 07:00 Phenazopyridine [Pyridium] 200 mg PO BID 11/14/19 11/14/19 Unknown Previous Rx's Medication Instructions Recorded Last Taken Type Tamsulosin [Flomax] 0.4 mg PO QDAY #14 cap 05/24/19 Unknown Rx Ketorolac [Toradol] 10 mg PO Q6H PRN #30 tablet 11/13/19 Unknown Rx Sulfamethoxazole/Trimethoprim 1 each PO BID #28 tablet 11/13/19 Unknown Rx [Bactrim DS TAB] Allergies Allergy/AdvReac Type Severity Reaction Status Date / Time amoxicillin Allergy Anaphylaxis Verified 11/13/19 18:39 clavulanic acid Allergy Anaphylaxis Verified 11/13/19 18:39 [From Augmentin] Penicillins Allergy Anaphylaxis Verified 11/13/19 18:39 ED Review of Systems ROS: Stated complaint: F/N/PAIN WITH PEEING Other details as noted in HPI Constitutional: fever. denies: malaise, weakness Eyes: denies: eye discharge ENT: denies: congestion Cardiovascular: denies: chest pain Gastrointestinal: abdominal pain, nausea, vomiting. denies: diarrhea, constipation Genitourinary: dysuria, frequency Musculoskeletal: back pain Skin: denies: lesions Neurological: weakness Psychiatric: anxiety Hematological/Lymphatic: as per HPI ED Past Medical Hx - Past Medical History Hx Hypertension: Yes (On amlodipine) Hx Heart Attack/AMI: No Hx Congestive Heart Failure: No Hx Diabetes: No Hx Deep Vein Thrombosis: No Hx Liver Disease: No Hx Renal Disease: Yes (Stones) Hx Sickle Cell Disease: No Hx Arthritis: No Hx Seizures: No Hx Kidney Stones: Yes Hx Asthma: Yes (+2FS) Hx COPD: No Hx Tuberculosis: No Hx Dementia: No Hx HIV: No - Surgical History Hx Coronary Stent: No Hx Open Heart Surgery: No Hx Pacemaker: No Hx Cholecystectomy: Yes Hx Appendectomy: No Hx Breast Surgery: No Additional Surgical History: Lithrotripsy, Hysterectomy, Left rotator cuff repair - Social History Smoking Status: Former Smoker Substance Use Type: None - Medications Home Medications: Home Medications Medication Instructions Recorded Confirmed Last Taken Type Cyclobenzaprine [Flexeril 10 MG 1 tab PO PRN PRN 01/12/19 11/14/19 Unknown History TAB] [place] 5-325 mg TAB 1 tab PO Q8HR 01/12/19 11/14/19 Unknown History amLODIPine 10 mg PO DAILY 01/12/19 11/14/19 11/04/19 07:00 History Tamsulosin [Flomax] 0.4 mg PO QDAY #14 cap 05/24/19 11/14/19 Unknown Rx Ketorolac [Toradol] 10 mg PO Q6H PRN #30 tablet 11/13/19 11/14/19 Unknown Rx Sulfamethoxazole/Trimethoprim 1 each PO BID #28 tablet 11/13/19 11/14/19 Unknown Rx [Bactrim DS TAB] Phenazopyridine [Pyridium] 200 mg PO BID 11/14/19 11/14/19 Unknown History ED Physical Exam - General Limitations: No Limitations General appearance: alert, anxious, in distress, obese - Head Head exam: Present: atraumatic, normocephalic - Eye Eye exam: Present: normal appearance, EOMI. Absent: nystagmus - ENT ENT exam: Present: normal exam, normal orophraynx, mucous membranes moist, normal external ear exam - Neck Neck exam: Present: normal inspection, full ROM. Absent: tenderness, meningismus - Respiratory Respiratory exam: Present: normal lung sounds bilaterally. Absent: respiratory distress - Cardiovascular Cardiovascular Exam: Present: normal rhythm, tachycardia, normal heart sounds. Absent: bradycardia, systolic murmur, diastolic murmur, rubs, gallop - GI/Abdominal GI/Abdominal exam: Present: soft. Absent: distended, tenderness, guarding, rigid, pulsatile mass - Extremities Exam Extremities exam: Present: normal inspection, full ROM, other (2+ pulses noted in the bilateral upper and lower extremities. There is no palpable cord. negative Homans sign. Muscular compartments are soft. The pelvis is stable.). Absent: pedal edema, calf tenderness - Back Exam Back exam: Present: normal inspection, full ROM, CVA tenderness (R). Absent: CVA tenderness (L), paraspinal tenderness, vertebral tenderness - Neurological Exam Neurological exam: Present: alert, normal gait, other (No facial droop. Tongue midline. Extraocular movements intact bilaterally. Facial sensation intact to light touch in V1, V2, V3 distribution bilaterally. 5 and a 5 strength in 4 extremities. Sensation intact to light touch in 4 extremities.). Absent: motor sensory deficit - Psychiatric Psychiatric exam: Present: anxious - Skin Skin exam: Present: warm, dry, intact, normal color. Absent: rash ED Course Vital Signs 11/13/19 11/13/19 11/13/19 18:43 21:57 23:00 Temperature 98.8 F Pulse Rate 100 H 77 Respiratory 20 20 17 Rate Blood Pressure 145/99 Blood Pressure [Left] O2 Sat by Pulse 99 Oximetry 11/13/19 11/13/19 11/13/19 23:16 23:30 23:46 Temperature Pulse Rate 70 77 86 Respiratory 22 16 15 Rate Blood Pressure 160/82 160/82 154/85 Blood Pressure [Left] O2 Sat by Pulse 97 94 97 Oximetry 11/14/19 11/14/19 11/14/19 00:00 00:08 00:16 Temperature Pulse Rate 70 73 69 Respiratory 12 18 12 Rate Blood Pressure 154/85 166/87 Blood Pressure 166/87 [Left] O2 Sat by Pulse 97 98 97 Oximetry 11/14/19 11/14/19 11/14/19 00:30 00:43 00:46 Temperature 98.8 F Pulse Rate 94 H 72 Respiratory 15 13 Rate Blood Pressure 166/87 171/91 Blood Pressure [Left] O2 Sat by Pulse 98 97 Oximetry 11/14/19 11/14/19 01:00 01:16 Temperature Pulse Rate 65 68 Respiratory 17 15 Rate Blood Pressure 171/91 171/91 Blood Pressure [Left] O2 Sat by Pulse 98 96 Oximetry - Reevaluation(s) Reevaluation #1: 11/13/19 21:44 Filled ID Written Drug QTY Days Prescriber Rx # Pharmacy * R efills Daily Dose Pymt Type NAPRAPATH 11/04/2019 1 10/31/2019 HYDROCODONE-ACETAMIN 7.5-325 20.0 4 BA ZIS [id number] [facility] ([id number]) 0 37.5 MME [place] 10/29/2019 3 10/29/2019 HYDROCODONE-ACETAMIN 10-325 MG 15.0 3 JU CAR [id number] [facility] ([id number]) 0 50.0 MME Private Pay [place] 10/25/2019 3 10/25/2019 HYDROCODONE-ACETAMIN 5-325 MG 12.0 3 AY TORIBIO [id number] [facility] ([id number]) 0 20.0 [place]ME [place] 08/08/2019 2 08/07/2019 ACETAMINOPHEN-COD #3 TABLET 15.0 4 SH SAMEERA [id number] [facility] ([id number]) 0 16.88 MME [place] 08/04/2019 2 08/04/2019 [id number] 50-325-40 30.0 15 MU MOM [id number] [facility] ([id number]) 0 [place] 08/04/2019 2 08/04/2019 PHENTERMINE 37.5 MG TABLET 30.0 30 MU MOM [id number] [facility] ([id number]) 0 [place] 06/30/2019 3 06/30/2019 ACETAMINOPHEN-COD #3 TABLET 15.0 4 JE PIR [id number] [facility] ([id number]) 0 16.88 MME Medicaid [place] Reevaluation #2: 11/13/19 22:22 Differential diagnosis, including but not limited to: Renal colic, stent colic, pyelonephritis Assessment and plan: 39-year-old female with complex urologic history, presenting with history of fever, right-sided flank pain, history of nausea and vomiting. Laboratory studies reviewed and appreciated. CT scan shows no hydro-, and appropriate stent placement. She is not febrile here in the emergency room. She reports intolerance to penicillins, and she is not sure if she has ever had ceftriaxone. I contacted her urologist of record, Dr. Julio C Swartz, and we discussed the patient's history, physical, laboratory studies, and imaging findings. He advises this is unlikely to be pyelonephritis, and more likely to be stent c olic. He also advises that he can see the patient tomorrow morning at 830, and his [place] office. However, he advises that the patient symptoms cannot be controlled in the emergency room, the patient can be admitted, and his group can follow in consultation. I have updated patient with this plan of care. We will reassess after initial medications have been administered. Reevaluation #3: 11/13/19 23:00 Reexamined. Still endorsing significant pain. Intravenous lidocaine, repeat dose of hydromorphone ordered. Reevaluation #4: 11/14/19 00:06 Patient is reassessed. She is still having significant pain in spite of multiple doses of Dilaudid, and intravenous lidocaine. I have clarified the patient's "penicillin" allergy. The patient states she received a penicillin product at the age of 14. She reports hives, but no throat closing, and reports that her mother had to give her an EpiPen. To the best of her recollection, she has not had penicillin since then. Is a third-generation cephalosporin, ceftriaxone is structurally dissimilar to penicillin, and is very statistically unlikely to cause an allergic reaction. In addition, we will give the patient a sub-dissociative dose of ketamine for pain control. No active vomiting, no fever Reevaluation #5: 11/14/19 01:18 Patient received 2 g ceftriaxone, without incident. Patient given sub- dissociative dose of ketamine, 20 mg, and reported to the nurse that her pain had resolved. I have gone back to reassess the patient, and she is now sleeping comfortably in her stretcher, in no acute distress. Elevated blood pressure likely secondary to ketamine, and chronic hypertension. No active vomiting. - Consultations Consultation #1: 11/14/19 01:48 Final reassessment. Patient has been in this department for 8 hours. No active vomiting, pain is controlled, no fevers have spiked. It is nearly 2:00 in the morning, and the patient has her follow-up appointment with her outpatient specialist in 6.5 hours. The patient reports that she feels comfortable to go home. I did educate the patient that she was given ceftriaxone without issue. We will continue Bactrim DS, and her urologist can decide if he would like to change her antibiotic therapy. In addition, I did offer the patient additional period of observation here in the emergency room, up to the next 4 hours, as my shift ends at 6 in the morning. The patient declines to stay for further evaluation, and through shared decision-making, we agreed to discharge to follow-up with her outpatient urologist. She states that her will come by and pick her up, and that she is reliable to follow-up with her urologist in a few hours. Return precautions were reviewed 11/17/19 06:57 ED Medical Decision Making - Lab Data Result diagrams: 11/13/19 19:52 11/13/19 19:52 Vital Signs 11/13/19 18:43 Temperature 98.8 F Pulse Rate 100 H Respiratory 20 Rate Blood Pressure 145/99 O2 Sat by Pulse 99 Oximetry Lab Results 11/13/19 11/13/19 11/13/19 Range/Units 19:52 19:52 Unknown WBC 9.9 (4.5-11.0) K/mm3 RBC 4.33 (3.65-5.03) M/mm3 Hgb 13.5 (10.1-14.3) gm/dl Hct 39.2 (30.3-42.9) % MCV 91 (79-97) fl MCH 31 (28-32) pg MCHC 34 (30-34) % RDW 13.6 (13.2-15.2) % Plt Count 297 (140-440) K/mm3 Lymph % (Auto) 22.5 (13.4-35.0) % [place] % (Auto) 5.2 (0.0-7.3) % Eos % (Auto) 1.4 (0.0-4.3) % Baso % (Auto) 0.5 (0.0-1.8) % Lymph # 2.2 (1.2-5.4) K/mm3 [place] # 0.5 (0.0-0.8) K/mm3 Eos # 0.1 (0.0-0.4) K/mm3 Baso # 0.0 (0.0-0.1) K/mm3 Seg Neutrophils % 70.4 H (40.0-70.0) % Seg Neutrophils # 7.0 (1.8-7.7) K/mm3 Sodium 139 (137-145) mmol/L Potassium 4.0 (3.6-5.0) mmol/L Chloride 104.4 (98-107) mmol/L Carbon Dioxide 21 L (22-30) mmol/L Anion Gap 18 mmol/L BUN 11 (7-17) mg/dL Creatinine 0.7 (0.7-1.2) mg/dL Estimated GFR > 60 ml/min BUN/Creatinine Ratio 16 % Glucose 120 H (65-100) mg/dL Calcium 9.2 (8.4-10.2) mg/dL Total Bilirubin 0.30 (0.1-1.2) mg/dL AST 23 (5-40) units/L ALT 36 (7-56) units/L Alkaline Phosphatase 100 (35-129) units/L Total Protein 7.9 (6.3-8.2) g/dL Albumin 4.2 (3.9-5) g/dL Albumin/Globulin Ratio 1.1 % Urine Color [place] (Yellow) Urine Turbidity Clear (Clear) Urine pH 6.0 (5.0-7.0) Ur Specific [place] 1.013 (1.003-1.030) Urine Protein <15 mg/dl (Negative) mg/dL Urine Glucose (UA) Neg (Negative) mg/dL Urine Ketones Neg (Negative) mg/dL Urine Blood Sm (Negative) Urine Nitrite Pos (Negative) Urine Bilirubin Neg (Negative) Urine Urobilinogen 2.0 (<2.0) mg/dL Ur Leukocyte Esterase Lg (Negative) Urine WBC (Auto) 41.0 H (0.0-6.0) /HPF Urine RBC (Auto) 26.0 (0.0-6.0) /HPF U Epithel Cells (Auto) 2.0 (0-13.0) /HPF Urine Bacteria (Auto) 1+ (Negative) /HPF Urine Mucus Few /HPF - Radiology Data Radiology results: report reviewed, image reviewed Print Report Referring Physician: TYREE DOTSON Patient Name: HAYLIE VALENTIN Date of : 1980 Sex: Female Report Date: 2019-11-13 Report Status: [place] [address] Cat Scan Report Signed Patient: HAYLIE VALENTIN MR#: [id number] : 1980 Acct:[id number] Age/Sex: 39 / F ADM Date: 11/13/19 Loc: ED Attending Dr: Ordering Physician: GISELLA THOMAS Date of Service: 11/13/19 Procedure(s): CT abdomen pelvis wo con Accession Number(s): [id number] cc: GISELLA THOMAS CT ABDOMEN AND PELVIS WITHOUT CONTRAST HISTORY: Flank pain, nausea, vomiting, fever COMPARISON: CT of the abdomen and pelvis on 05/24/2019. TECHNIQUE: Routine abdominal and pelvic CT exam performed without contrast. Lack of intravenous contrast limits evaluation of the vascular and solid organs.. All CT scans at this location are performed using CT dose reduction for ALARA by means of automated exposure control. FINDINGS: CT ABDOMEN: Lung Bases: No significant abnormality. Liver: No significant abnormality. Biliary: Gallbladder is surgically absent. Spleen: No significant abnormality. Unenlarged. Pancreas: No significant abnormality. Adrenals: No significant abnormality. Kidneys: Right ureteral stent is in place, without significant hydronephrosis. There are multiple right intrarenal stones measuring up to 6 mm. Left kidney appears normal. Lymphatics: No lymphadenopathy. Vasculature: No significant abnormality. Bowel/Peritoneum: No significant abnormality. No free air. No free fluid. Normal appendix. CT PELVIC: : No significant abnormality. Lymphatics: No lymphadenopathy. Osseous Structures: No aggressive appearing osseous lesions. Additional Findings: None IMPRESSION: 1. Right ureteral stent appears appropriately positioned without hydronephrosis. There are multiple right intrarenal stones. 2. No additional significant abnormality. Signer Name: Germán Kimball MD Signed: 11/13/2019 8:38 PM Workstation Name: [id number] Transcribed By: JASON Dictated By: Germán Kimball MD Electronically Authenticated By: Germán Kimball MD Signed Date/Time: 11/13/192037 DD/ 35 TD/TT: Critical Care Time: Yes Critical care time in (mins) excluding proc time.: 35 Critical care attestation.: If time is entered above; I have spent that time in minutes in the direct care of this critically ill patient, excluding procedure time. Critical Care Time: Critical care time includes multiple bedside re-evaluations, review of laboratory records, radiology records, for medical records, and multiple discussions with patient's outpatient urology specialists, including Drs. Winkler, and Tom, discussing patient's plan of care, history, physical, pertinent diagnoses, and arranging close outpatient follow-up. This does not include procedure time ED Disposition Clinical Impression: Right flank pain Disposition: DC-01 TO HOME OR SELFCARE Is pt being admited?: No Does the pt Need Aspirin: No Condition: Stable Additional Instructions: Take the pain medication, nausea medication, antibiotics as directed. Do not consume alcohol. Patient should follow-up with her urologist tomorrow, November 14, 2019, 8:30 in the morning, at the following location: [facility] Office Contact Information [address], [address] [place] [address] Cultures were sent today, and results will be available in the next 3 to 5 days. Please have your primary care doctor or urology specialist contact the medical records department to obtain culture results. Please return to the emergency room right away with new pain, worsening pain, migration of pain, projectile vomiting, change in mental status, confusion, inability to tolerate liquid feeds, new, worsened or different symptoms not present on the initial emergency room evaluation Prescriptions: Sulfamethoxazole/Trimethoprim [Bactrim DS TAB] 1 each PO BID #28 tablet Ketorolac [Toradol] 10 mg PO Q6H PRN #30 tablet PRN Reason: Pain Referrals: SKY VILLARREAL MD [Staff Physician] - 11/14/19 8:30 am ( [place] [facility] Spoken Romanian, Serbian [place] [facility] Contact Information [address], [address] [place] [address] )
[2019-11-13] MEDS ORDERED: ONDANSETRON 4 MG/2 ML INJ IV ONE (21:54)
[2019-11-13] MEDS ORDERED: KETOROLAC 30 MG/1 ML INJ IV ONE (21:54)
[2019-11-13] MEDS ORDERED: SODIUM CHLORIDE 0.9% 500 ML 500 ML IV ONE (21:54)
[2019-11-13] MEDS ORDERED: HYDROmorphone 1 MG/1 ML INJ IV ONE ×2 (21:54→23:00)
[2019-11-13] MEDS ORDERED: LIDOCAINE PF 100 MG/5 ML (CARDIAC SYRINGE) IV ONE (23:00)
[2019-11-13] MEDS ORDERED: SODIUM CHLORIDE 0.9% 50 ML ONE (23:10)
[2019-11-14] MEDS ORDERED: cefTRIAXone/NS 2 GM/100 ML 2 GM/100 ML BAG IV ONE (00:05)
[2019-11-14] MEDS ORDERED: KETAMINE 500 MG/5 ML VIAL MDV IV ONE (00:06)
[2019-11-14 01:35] VITALS: BP 171/91
== END 2019-11-14 02:54 | disposition home or self-care (01) ==
LOC: ED 17:49
DX: R10.31 Right lower quadrant pain (principal); Z79.899 Other long term (current) drug therapy; E66.9 Obesity, unspecified; I10 Essential (primary) hypertension; J45.909 Unspecified asthma, uncomplicated; Z90.710 Acquired absence of both cervix and uterus; Z68.41 Body mass index [BMI] 40.0-44.9, adult; Z88.0 Allergy status to penicillin; Z88.8 Allergy status to other drugs, medicaments and biological substances; Z90.49 Acquired absence of other specified parts of digestive tract; Z87.442 Personal history of urinary calculi; Z87.891 Personal history of nicotine dependence
CPT/HCPCS: 36415; 74176; 80053; 81001; 82550; 83735; 85025; 87086; 96361; 96365; 96375; 96376; 99284; J0696; J1170; J1885; J2001; J2405; J7040

== ENCOUNTER 2019-11-17 09:23 | Day surgery (SDC) | payer MEDICAID ==
[~2019-11-17 09:23] MED LIST: LACTATED RINGERS 1,000 ML IV SCH
[2019-11-17] MEDS ORDERED: fentaNYL 100 MCG/2 ML INJ IV NR (10:52)
[2019-11-17] MEDS ORDERED: LACTATED RINGERS 1,000 ML IV SCH (11:00)
[2019-11-17] MEDS ORDERED: fentaNYL 100 MCG/2 ML INJ IV ONE (14:48)
[2019-11-17] MEDS ORDERED: MIDAZOLAM 2 MG/2 ML INJ IV ONE (15:02)
[2019-11-17] MEDS ORDERED: LIDOCAINE MPF (2%) 20 MG/1 ML VIAL 5 ML ONE (15:42)
[2019-11-17] MEDS ORDERED: dexAMETHasone 20 MG/5 ML VIAL ONE (15:42)
[2019-11-17] MEDS ORDERED: ONDANSETRON 4 MG/2 ML INJ ONE (15:42)
[2019-11-17] MEDS ORDERED: fentaNYL 100 MCG/2 ML INJ ONE ×2 (15:43→16:53)
[2019-11-17] MEDS ORDERED: propofoL 200 MG/20 ML VIAL IV ONE (15:43)
[2019-11-17] MEDS ORDERED: WATER FOR IRRIG STERILE 2000 ML IR ONE (16:30)
[2019-11-17] MEDS ORDERED: MORPHINE 2 MG/1 ML INJ ONE (16:44)
[2019-11-17] MEDS ORDERED: KETOROLAC 30 MG/1 ML INJ ONE (16:53)
[2019-11-17] MEDS: fentaNYL 100 MCG/2 ML INJ IV PRN ×2 (17:20→17:30)
[2019-11-17 18:06] VITALS: BP 140/78
== END 2019-11-17 18:30 | disposition home or self-care (01) ==
LOC: OR 09:23
PROVIDERS: ATTEND Urology
DX: N20.2 Calculus of kidney with calculus of ureter (principal); F17.210 Nicotine dependence, cigarettes, uncomplicated; I10 Essential (primary) hypertension; J45.909 Unspecified asthma, uncomplicated; G47.30 Sleep apnea, unspecified; E66.9 Obesity, unspecified; Z98.891 History of uterine scar from previous surgery; Z88.6 Allergy status to analgesic agent; Z88.0 Allergy status to penicillin; Z79.899 Other long term (current) drug therapy; Z90.49 Acquired absence of other specified parts of digestive tract; Z90.710 Acquired absence of both cervix and uterus; Z87.440 Personal history of urinary (tract) infections; Z98.890 Other specified postprocedural states; Z88.8 Allergy status to other drugs, medicaments and biological substances; Z68.41 Body mass index [BMI] 40.0-44.9, adult
CPT/HCPCS: 52356; 74420; A4217; C1758; C1769; C2617; J1100; J1885; J1956; J2250; J2270; J2405; J2704; J3010; J7120; Q9967

== ENCOUNTER 2019-11-23 22:39 | Emergency (ER) | payer MEDICAID ==
[2019-11-24 02:46] LABS: Basophils % (Auto) 0.2 % (0.0-1.8); Eosinophils # (Auto) 0.3 K/mm3 (0.0-0.4); Eosinophils % (Auto) 2.9 % (0.0-4.3); Hematocrit 40.1 % (30.3-42.9); Hemoglobin 13.5 gm/dl (10.1-14.3); Lymphocytes # (Auto) 2.9 K/mm3 (1.2-5.4); Lymphocytes % (Auto) 30.1 % (13.4-35.0); Mean Corpuscular HGB Conc 34 % (30-34); Mean Corpuscular Volume 92 fl (79-97); Monocytes # (Auto) 0.9 K/mm3 (0.0-0.8); Monocytes % (Auto) 9.2 % (0.0-7.3); Platelet Count 218 K/mm3 (140-440); Red Blood Count 4.38 M/mm3 (3.65-5.03); Red Cell Distribution Width 13.6 % (13.2-15.2)
[2019-11-24 03:03] LABS: Alanine Aminotransferase 35 units/L (7-56); Albumin 4.3 g/dL (3.9-5); BUN/Creatinine Ratio 16; Blood Urea Nitrogen 13 mg/dL (7-17); Calcium 9.2 mg/dL (8.4-10.2); Hemolysis Index 4
[2019-11-24] MEDS ORDERED: SODIUM CHLORIDE IRRI 500 ML 500 ML IR ONE (03:25)
[2019-11-24] MEDS ORDERED: ONDANSETRON 4 MG/2 ML INJ IV ONE (03:27)
[2019-11-24] MEDS ORDERED: HYDROmorphone 1 MG/1 ML INJ IV ONE ×2 (03:27→03:49)
[2019-11-24] MEDS ORDERED: HYDROmorphone 1 MG/1 ML INJ ONE (03:30)
[2019-11-24] MEDS ORDERED: SODIUM CHLORIDE 0.9% IRR 500 ML BOTTLE IR ONE (03:38)
[2019-11-24 03:59] LABS: Bilirubin,Urine NEG (Negative); Blood,Urine MOD (Negative); Color,Urine Yellow (Yellow); Mucus,Urine 1+ /HPF; Urobilinogen,Urine < 2.0 mg/dL (<2.0)
--- NOTE | 2019-11-24 04:05 | Cat Scan Report ---
CT ABDOMEN AND PELVIS WITHOUT CONTRAST INDICATION: MAIN: abdominal pain, no urine output x 24 hrs. stent placed x 7 days ago. TECHNIQUE: Axial CT images were obtained through the abdomen and pelvis without IV contrast. All CT scans at [facility] location are performed using CT dose reduction for ALARA by means of automated exposure control. COMPARISON: CT abdomen and pelvis 11/13/2019 FINDINGS: LOWER CHEST: No significant abnormality. LIVER: No significant abnormality. GALLBLADDER: Surgically absent BILE DUCTS: No significant abnormality. PANCREAS: No significant abnormality. SPLEEN: No significant abnormality. ADRENALS: No significant abnormality. RIGHT KIDNEY and URETER: Double-J right ureteral stent again noted in expected position. 4 nonobstruc ting right intrarenal stones, largest of which measures 6 mm. No hydronephrosis. LEFT KIDNEY and URETER: No significant abnormality. STOMACH and SMALL BOWEL: No significant abnormality. COLON: No significant abnormality. APPENDIX: No significant abnormality. PERITONEUM: No free fluid. No free air. No fluid collection. LYMPH NODES: No significant adenopathy. AORTA and ARTERIES: No significant abnormality. IVC and VEINS: No significant abnormality. URINARY BLADDER: Collapsed containing Arnett catheter balloon. REPRODUCTIVE ORGANS: No significant abnormality. ADDITIONAL FINDINGS: None. SKELETAL SYSTEM: No significant abnormality. IMPRESSION: 1. Right nephrolithiasis. No ureteral stone or hydronephrosis. 2. Double-J right ureteral stent again noted in expected position. Signer Name: Wes Cline MD Signed: 11/24/2019 4:01 AM Workstation Name: [id number]
--- NOTE | 2019-11-24 05:06 | Emergency Department Report ---
ED General Adult HPI - General Chief complaint: Abdominal Pain Stated complaint: UNABLE TO URINATE SINCE 10A Time Seen by Provider: 11/24/19 04:06 Source: patient Mode of arrival: Ambulatory Limitations: No Limitations - History of Present Illness Initial comments: 39-year-old female patient presents with complaints of not being able to urinate since 10 AM today. She has a chronic right-sided double-J stent and follows with Dr. Santos, urology. Patient recently had a lithotripsy performed with 11/17/19 and was also seen here in the ED 11/13/2019. She states she is currently on Levaquin 750 twice daily and has a chronic UTI. Patient states around 7 PM she had a sudden urge to urinate and passed a small blood clot that did not contain a stone or urine. She rates her current pain as a 7/10 in severity. She also states she had a fever of 101.3 earlier today. Severity scale (0 -10): 10 - Related Data Home Medications Medication Instructions Recorded Confirmed Last Taken Cyclobenzaprine [Flexeril 10 MG 1 tab PO PRN PRN 01/12/19 11/17/19 11/16/19 TAB] amLODIPine 10 mg PO DAILY 01/12/19 11/17/19 11/17/19 06:00 Phenazopyridine [Pyridium] 200 mg PO BID 11/14/19 11/17/19 3 Days Ago ~11/14/19 Morphine [Morphine TAB] 7.5 mg PO Q6HR 11/17/19 11/17/19 11/16/19 Previous Rx's Medication Instructions Recorded Last Taken Type Ketorolac [Toradol] 10 mg PO Q6H PRN #30 tablet 11/13/19 11/16/19 Rx Sulfamethoxazole/Trimethoprim 1 each PO BID #28 tablet 11/13/19 11/16/19 Rx [Bactrim DS TAB] Allergies Allergy/AdvReac Type Severity Reaction Status Date / Time amoxicillin Allergy Anaphylaxis Verified 11/13/19 18:39 clavulanic acid Allergy Anaphylaxis Verified 11/13/19 18:39 [From Augmentin] Penicillins Allergy Anaphylaxis Verified 11/13/19 18:39 Luteinizing Hormone Analogues AdvReac Unknown Verified 11/17/19 12:15 ED Review of Systems ROS: Stated complaint: UNABLE TO URINATE SINCE 10A Other details as noted in HPI Constitutional: fever. denies: chills, diaphoresis, malaise Respiratory: denies: cough, shortness of breath Cardiovascular: denies: chest pain Gastrointestinal: abdominal pain, nausea. denies: constipation, hematemesis Genitourinary: as per HPI Musculoskeletal: back pain (Right flank pain) Skin: denies: rash, lesions ED Past Medical Hx - Past Medical History Previous Medical History?: Yes Hx Hypertension: Yes (took amlodipine this morning) Hx Heart Attack/AMI: No Hx Congestive Heart Failure: No Hx Diabetes: No Hx Deep Vein Thrombosis: No Hx Liver Disease: No Hx Renal Disease: No Hx Arthritis: No Hx Kidney Stones: Yes Hx Asthma: Yes (no inhaler use in several months) Hx Tuberculosis: No Hx Dementia: No Hx HIV: No - Surgical History Past Surgical History?: Yes Hx Coronary Stent: No Hx Open Heart Surgery: No Hx Cholecystectomy: Yes Hx Appendectomy: No Hx Breast Surgery: No Additional Surgical History: Lithrotripsy, Hysterectomy, Left rotator cuff repair - Social History Smoking Status: Never Smoker Substance Use Type: None - Medications Home Medications: Home Medications Medication Instructions Recorded Confirmed Last Taken Type Cyclobenzaprine [Flexeril 10 MG 1 tab PO PRN PRN 01/12/19 11/17/19 11/16/19 History TAB] amLODIPine 10 mg PO DAILY 01/12/19 11/17/19 11/17/19 06:00 History Ketorolac [Toradol] 10 mg PO Q6H PRN #30 tablet 11/13/19 11/17/19 11/16/19 Rx Sulfamethoxazole/Trimethoprim 1 each PO BID #28 tablet 11/13/19 11/17/19 11/16/19 Rx [Bactrim DS TAB] Phenazopyridine [Pyridium] 200 mg PO BID 11/14/19 11/17/19 3 Days Ago History ~11/14/19 Morphine [Morphine TAB] 7.5 mg PO Q6HR 11/17/19 11/17/19 11/16/19 History ED Physical Exam - General Limitations: No Limitations General appearance: alert, in no apparent distress - Head Head exam: Present: atraumatic, normocephalic - Eye Eye exam: Present: normal appearance. Absent: scleral icterus - Neck Neck exam: Present: full ROM - Respiratory Respiratory exam: Absent: respiratory distress - Cardiovascular Cardiovascular Exam: Present: regular rate, normal rhythm - GI/Abdominal GI/Abdominal exam: Present: soft, tenderness (Right side, right flank, and right suprapubic/right lower quadrant), normal bowel sounds. Absent: rigid - Back Exam Back exam: Present: CVA tenderness (R) - Neurological Exam Neurological exam: Present: alert, oriented X3 - Psychiatric Psychiatric exam: Present: normal affect, normal mood - Skin Skin exam: Present: warm, dry, intact, normal color. Absent: rash, erythema ED Course Vital Signs 11/23/19 11/24/19 11/24/19 23:43 01:31 02:43 Temperature 98.3 F 97.4 F L 98.2 F Pulse Rate 86 85 79 Respiratory 18 18 16 Rate Blood Pressure 188/102 156/93 Blood Pressure 161/90 [Left] O2 Sat by Pulse 99 100 99 Oximetry 11/24/19 11/24/19 11/24/19 03:01 03:29 03:50 Temperature Pulse Rate 81 Respiratory 14 15 19 Rate Blood Pressure 149/96 Blood Pressure [Left] O2 Sat by Pulse 99 Oximetry 11/24/19 11/24/19 04:00 05:00 Temperature Pulse Rate 84 75 Respiratory 21 17 Rate Blood Pressure 156/91 141/82 Blood Pressure [Left] O2 Sat by Pulse 98 96 Oximetry ED Medical Decision Making - Lab Data Result diagrams: 11/24/19 02:24 11/24/19 02:24 Lab Results 11/24/19 11/24/19 11/24/19 Range/Units 02:24 02:24 02:24 WBC 9.7 (4.5-11.0) K/mm3 RBC 4.38 (3.65-5.03) M/mm3 Hgb 13.5 (10.1-14.3) gm/dl Hct 40.1 (30.3-42.9) % MCV 92 (79-97) fl MCH 31 (28-32) pg MCHC 34 (30-34) % RDW 13.6 (13.2-15.2) % Plt Count 218 (140-440) K/mm3 Lymph % (Auto) 30.1 (13.4-35.0) % [place] % (Auto) 9.2 H (0.0-7.3) % Eos % (Auto) 2.9 (0.0-4.3) % Baso % (Auto) 0.2 (0.0-1.8) % Lymph # 2.9 (1.2-5.4) K/mm3 [place] # 0.9 H (0.0-0.8) K/mm3 Eos # 0.3 (0.0-0.4) K/mm3 Baso # 0.0 (0.0-0.1) K/mm3 Seg Neutrophils % 57.6 (40.0-70.0) % Seg Neutrophils # 5.6 (1.8-7.7) K/mm3 Sodium 140 (137-145) mmol/L Potassium 4.1 (3.6-5.0) mmol/L Chloride 103.8 (98-107) mmol/L Carbon Dioxide 21 L (22-30) mmol/L Anion Gap 19 mmol/L BUN 13 (7-17) mg/dL Creatinine 0.8 (0.7-1.2) mg/dL Estimated GFR > 60 ml/min BUN/Creatinine Ratio 16 % Glucose 88 (65-100) mg/dL Calcium 9.2 (8.4-10.2) mg/dL Total Bilirubin 0.30 (0.1-1.2) mg/dL AST 21 (5-40) units/L ALT 35 (7-56) units/L Alkaline Phosphatase 105 (35-129) units/L Total Protein 7.9 (6.3-8.2) g/dL Albumin 4.3 (3.9-5) g/dL Albumin/Globulin Ratio 1.2 % Lipase 50 (13-60) units/L HCG, Qual Negative (Negative) Urine Color (Yellow) Urine Turbidity (Clear) Urine pH (5.0-7.0) Ur Specific [place] (1.003-1.030) Urine Protein (Negative) mg/dL Urine Glucose (UA) (Negative) mg/dL Urine Ketones (Negative) mg/dL Urine Blood (Negative) Urine Nitrite (Negative) Urine Bilirubin (Negative) Urine Urobilinogen (<2.0) mg/dL Ur Leukocyte Esterase (Negative) Urine WBC (Auto) (0.0-6.0) /HPF Urine RBC (Auto) (0.0-6.0) /HPF U Epithel Cells (Auto) (0-13.0) /HPF Urine Mucus /HPF 11/24/19 Range/Units 03:36 WBC (4.5-11.0) K/mm3 RBC (3.65-5.03) M/mm3 Hgb (10.1-14.3) gm/dl Hct (30.3-42.9) % MCV (79-97) fl MCH (28-32) pg MCHC (30-34) % RDW (13.2-15.2) % Plt Count (140-440) K/mm3 Lymph % (Auto) (13.4-35.0) % [place] % (Auto) (0.0-7.3) % Eos % (Auto) (0.0-4.3) % Baso % (Auto) (0.0-1.8) % Lymph # (1.2-5.4) K/mm3 [place] # (0.0-0.8) K/mm3 Eos # (0.0-0.4) K/mm3 Baso # (0.0-0.1) K/mm3 Seg Neutrophils % (40.0-70.0) % Seg Neutrophils # (1.8-7.7) K/mm3 Sodium (137-145) mmol/L Potassium (3.6-5.0) mmol/L Chloride (98-107) mmol/L Carbon Dioxide (22-30) mmol/L Anion Gap mmol/L BUN (7-17) mg/dL Creatinine (0.7-1.2) mg/dL Estimated GFR ml/min BUN/Creatinine Ratio % Glucose (65-100) mg/dL Calcium (8.4-10.2) mg/dL Total Bilirubin (0.1-1.2) mg/dL AST (5-40) units/L ALT (7-56) units/L Alkaline Phosphatase (35-129) units/L Total Protein (6.3-8.2) g/dL Albumin (3.9-5) g/dL Albumin/Globulin Ratio % Lipase (13-60) units/L HCG, Qual (Negative) Urine Color Yellow (Yellow) Urine Turbidity Slightly-cloudy (Clear) Urine pH 6.0 (5.0-7.0) Ur Specific [place] 1.015 (1.003-1.030) Urine Protein 30 mg/dl (Negative) mg/dL Urine Glucose (UA) Neg (Negative) mg/dL Urine Ketones Neg (Negative) mg/dL Urine Blood Mod (Negative) Urine Nitrite Neg (Negative) Urine Bilirubin Neg (Negative) Urine Urobilinogen < 2.0 (<2.0) mg/dL Ur Leukocyte Esterase Mod (Negative) Urine WBC (Auto) 94.0 H (0.0-6.0) /HPF Urine RBC (Auto) 39.0 (0.0-6.0) /HPF U Epithel Cells (Auto) 1.0 (0-13.0) /HPF Urine Mucus 1+ /HPF - Radiology Data Radiology results: report reviewed CT ABDOMEN AND PELVIS WITHOUT CONTRAST INDICATION: MAIN: abdominal pain, no urine output x 24 hrs. stent placed x 7 days ago. TECHNIQUE: Axial CT images were obtained through the abdomen and pelvis without IV contrast. All CT scans at this location are performed using CT dose reduction for ALARA by means of automated exposure control. COMPARISON: CT abdomen and pelvis 11/13/2019 FINDINGS: LOWER CHEST: No significant abnormality. LIVER: No significant abnormality. GALLBLADDER: Surgically absent BILE DUCTS: No significant abnormality. PANCREAS: No significant abnormality. SPLEEN: No significant abnormality. ADRENALS: No significant abnormality. RIGHT KIDNEY and URETER: Double-J right ureteral stent again noted in expected position. 4 nonobstructing right intrarenal stones, largest of which measures 6 mm. No hydronephrosis. LEFT KIDNEY and URETER: No significant abnormality. STOMACH and SMALL BOWEL: No significant abnormality. COLON: No significant abnormality. APPENDIX: No significant abnormality. PERITONEUM: No free fluid. No free air. No fluid collection. LYMPH NODES: No significant adenopathy. AORTA and ARTERIES: No significant abnormality. IVC and VEINS: No significant abnormality. URINARY BLADDER: Collapsed containing Arnett catheter balloon. REPRODUCTIVE ORGANS: No significant abnormality. ADDITIONAL FINDINGS: None. SKELETAL SYSTEM: No significant abnormality. IMPRESSION: 1. Right nephrolithiasis. No ureteral stone or hydronephrosis. 2. Double-J right ureteral stent again noted in expected position. - Medical Decision Making Patient here with acute urinary retention. She is currently following with Dr. Santos, urology, and has a chronic right J stent. White count is normal CBC. No fever has been observed during patient stay here in the ED. CT shows chronic kidney stones and is negative for any obstruction. Arnett catheter was placed and patient is draining urine. Patient has drained approximately 600 cc of urine. UA shows WBCs = 94. Patient was seen here in the ED 11/13/2019, UA showed 41 WBCs and urine culture was negative for bacteria. Discussed patient in detail with Dr. Holman who is familiar with patient. Advises patient be discharged home and continue on Levaquin and follow-up in office with her urologist today. [place] [facility] was consulted due to patient concerns of needing to be admitted for further evaluation. I spoke with Dr. Winkler who works with Dr. Santos-advises patient be discharged home and follow-up in office today. Patient informed to contact office around 8 or 9 AM. Patient to discharge home with Arnett catheter. Strict return precautions were discussed in detail with patient who verbalizes understanding. Critical care attestation.: If time is entered above; I have spent that time in minutes in the direct care of this critically ill patient, excluding procedure time. ED Disposition Clinical Impression: Urinary retention, Pyuria Disposition: - TO HOME OR SELFCARE Is pt being admited?: No Condition: Stable Instructions: Acute Urinary Retention in Women (ED) Additional Instructions: Please follow up with your Urologist, Dr. Santos, today for further evaluation and treatment. Please continue taking your levaquin as prescribed. Seek immediate emergency treatment if you develop any new or worsening symptoms. Referrals: PRIMARY CARE, [Primary Care Provider] - 3-5 Days Forms: Work/School Release Form(ED)
--- NOTE | 2019-11-24 05:20 | Event Note ---
Date: 11/24/19 This is a 39-year-old female who I am very familiar with. Please reference my note from earlier on this month. Patient has a chronic right-sided double-J stent, and probable ureteral colic. In addition, she was referred to her outpatient urologist less than 2 weeks ago, who agreed to see her the very next day for her acute on chronic flank pain. Her urine cultures were negative. She presents today with acute urinary retention, which was alleviated with placement of a Arnett catheter. Her labs otherwise appear to be at baseline. Her CT scan appears to be at baseline. Her vital signs are unremarkable. As a courtesy, we will discuss with her outpatient urologist, however, the patient does not meet criteria for hospitalization or emergent admission at this time. In addition, she was recently prescribed numerous analgesics. She will need to follow-up with her outpatient urologist for further care for her chronic issues. Her ac abraham emergent condition today, urinary obstruction, has been treated with a Arnett catheter. Vital Signs 11/23/19 11/24/19 11/24/19 23:43 01:31 02:43 Temperature 98.3 F 97.4 F L 98.2 F Pulse Rate 86 85 79 Respiratory 18 18 16 Rate Blood Pressure 188/102 156/93 Blood Pressure 161/90 [Left] O2 Sat by Pulse 99 100 99 Oximetry 11/24/19 11/24/19 11/24/19 03:01 03:29 03:50 Temperature Pulse Rate 81 Respiratory 14 15 19 Rate Blood Pressure 149/96 Blood Pressure [Left] O2 Sat by Pulse 99 Oximetry 11/24/19 11/24/19 04:00 05:00 Temperature Pulse Rate 84 75 Respiratory 21 17 Rate Blood Pressure 156/91 141/82 Blood Pressure [Left] O2 Sat by Pulse 98 96 Oximetry Lab Results 11/24/19 11/24/19 11/24/19 Range/Units 02:24 02:24 02:24 WBC 9.7 (4.5-11.0) K/mm3 RBC 4.38 (3.65-5.03) M/mm3 Hgb 13.5 (10.1-14.3) gm/dl Hct 40.1 (30.3-42.9) % MCV 92 (79-97) fl MCH 31 (28-32) pg MCHC 34 (30-34) % RDW 13.6 (13.2-15.2) % Plt Count 218 (140-440) K/mm3 Lymph % (Auto) 30.1 (13.4-35.0) % [place] % (Auto) 9.2 H (0.0-7.3) % Eos % (Auto) 2.9 (0.0-4.3) % Baso % (Auto) 0.2 (0.0-1.8) % Lymph # 2.9 (1.2-5.4) K/mm3 [place] # 0.9 H (0.0-0.8) K/mm3 Eos # 0.3 (0.0-0.4) K/mm3 Baso # 0.0 (0.0-0.1) K/mm3 Seg Neutrophils % 57.6 (40.0-70.0) % Seg Neutrophils # 5.6 (1.8-7.7) K/mm3 Sodium 140 (137-145) mmol/L Potassium 4.1 (3.6-5.0) mmol/L Chloride 103.8 (98-107) mmol/L Carbon Dioxide 21 L (22-30) mmol/L Anion Gap 19 mmol/L BUN 13 (7-17) mg/dL Creatinine 0.8 (0.7-1.2) mg/dL Estimated GFR > 60 ml/min BUN/Creatinine Ratio 16 % Glucose 88 (65-100) mg/dL Calcium 9.2 (8.4-10.2) mg/dL Total Bilirubin 0.30 (0.1-1.2) mg/dL AST 21 (5-40) units/L ALT 35 (7-56) units/L Alkaline Phosphatase 105 (35-129) units/L Total Protein 7.9 (6.3-8.2) g/dL Albumin 4.3 (3.9-5) g/dL Albumin/Globulin Ratio 1.2 % Lipase 50 (13-60) units/L HCG, Qual Negative (Negative) Urine Color (Yellow) Urine Turbidity (Clear) Urine pH (5.0-7.0) Ur Specific [place] (1.003-1.030) Urine Protein (Negative) mg/dL Urine Glucose (UA) (Negative) mg/dL Urine Ketones (Negative) mg/dL Urine Blood (Negative) Urine Nitrite (Negative) Urine Bilirubin (Negative) Urine Urobilinogen (<2.0) mg/dL Ur Leukocyte Esterase (Negative) Urine WBC (Auto) (0.0-6.0) /HPF Urine RBC (Auto) (0.0-6.0) /HPF U Epithel Cells (Auto) (0-13.0) /HPF Urine Mucus /HPF /15/20 Range/Units 03:36 WBC (4.5-11.0) K/mm3 RBC (3.65-5.03) M/mm3 Hgb (10.1-14.3) gm/dl Hct (30.3-42.9) % MCV (79-97) fl MCH (28-32) pg MCHC (30-34) % RDW (13.2-15.2) % Plt Count (140-440) K/mm3 Lymph % (Auto) (13.4-35.0) % [place] % (Auto) (0.0-7.3) % Eos % (Auto) (0.0-4.3) % Baso % (Auto) (0.0-1.8) % Lymph # (1.2-5.4) K/mm3 [place] # (0.0-0.8) K/mm3 Eos # (0.0-0.4) K/mm3 Baso # (0.0-0.1) K/mm3 Seg Neutrophils % (40.0-70.0) % Seg Neutrophils # (1.8-7.7) K/mm3 Sodium (137-145) mmol/L Potassium (3.6-5.0) mmol/L Chloride (98-107) mmol/L Carbon Dioxide (22-30) mmol/L Anion Gap mmol/L BUN (7-17) mg/dL Creatinine (0.7-1.2) mg/dL Estimated GFR ml/min BUN/Creatinine Ratio % Glucose (65-100) mg/dL Calcium (8.4-10.2) mg/dL Total Bilirubin (0.1-1.2) mg/dL AST (5-40) units/L ALT (7-56) units/L Alkaline Phosphatase (35-129) units/L Total Protein (6.3-8.2) g/dL Albumin (3.9-5) g/dL Albumin/Globulin Ratio % Lipase (13-60) units/L HCG, Qual (Negative) Urine Color Yellow (Yellow) Urine Turbidity Slightly-cloudy (Clear) Urine pH 6.0 (5.0-7.0) Ur Specific [place] 1.015 (1.003-1.030) Urine Protein 30 mg/dl (Negative) mg/dL Urine Glucose (UA) Neg (Negative) mg/dL Urine Ketones Neg (Negative) mg/dL Urine Blood Mod (Negative) Urine Nitrite Neg (Negative) Urine Bilirubin Neg (Negative) Urine Urobilinogen < 2.0 (<2.0) mg/dL Ur Leukocyte Esterase Mod (Negative) Urine WBC (Auto) 94.0 H (0.0-6.0) /HPF Urine RBC (Auto) 39.0 (0.0-6.0) /HPF U Epithel Cells (Auto) 1.0 (0-13.0) /HPF Urine Mucus 1+ /HPF
[2019-11-24 06:33] VITALS: BP 139/70
== END 2019-11-24 07:10 | disposition home or self-care (01) ==
LOC: ED 22:39
DX: R33.9 Retention of urine, unspecified (principal); R82.81 Pyuria; I10 Essential (primary) hypertension; J45.909 Unspecified asthma, uncomplicated; Z90.49 Acquired absence of other specified parts of digestive tract; Z98.890 Other specified postprocedural states; Z79.899 Other long term (current) drug therapy; Z88.1 Allergy status to other antibiotic agents; Z88.8 Allergy status to other drugs, medicaments and biological substances
CPT/HCPCS: 36415; 51702; 74176; 80053; 81001; 83690; 84703; 85025; 87086; 96374; 96375; 96376; 99284; J1170; J2405

== ENCOUNTER 2020-05-24 13:34 | Day surgery (SDC) | payer MEDICAID ==
[2020-05-24] MEDS ORDERED: SODIUM CHLORIDE 0.9% 250ML 250 ML ONE (15:15)
[2020-05-24] MEDS ORDERED: SODIUM CHLORIDE IRRI 500 ML 500 ML IR ONE (15:15)
--- NOTE | 2020-05-24 15:40 | Short Stay Summary ---
Short Stay Documentation Date of service: 05/24/20 Narrative H&P: 39-year-old female with right-sided large renal calculi status post PCN you for PCNL. PCNL was performed, but was difficult and stone could not be completely removed. Plan was to allow the tract epithelialized. Patient presents for nephrostogram. Discussed nephrostomy tube exchange if required, but patient drank earlier today, and has declined to allow us to exchange the tube under local. - History Principal diagnosis: Renal calculi Past Medical History: other (Renal stones) Past Surgical History: Other (Renal stone procedures) Social history: - Allergies and Medications Current Medications: Allergies amoxicillin Allergy (Verified 11/13/19 18:39) Anaphylaxis clavulanic acid [From Augmentin] Allergy (Verified 11/13/19 18:39) Anaphylaxis Penicillins Allergy (Verified 11/13/19 18:39) Anaphylaxis Luteinizing Hormone Analogues Adverse Reaction (Verified 11/17/19 12:15) Unknown PT STATES SHE BECOMES EXTREMELY AGGRESSIVE. THE ACTUAL HORMONE PATCH "EATS SKIN". STATES IT RIPPED SKIN OFF AREA WHERE IT WAS LOCATED. Home Medications Medication Instructions Recorded Confirmed Last Taken Type amLODIPine 10 mg PO DAILY 01/12/19 05/24/20 05/23/20 History 10 mg ALPRAZolam [Xanax TAB] 0.5 mg PO DAILY PRN 05/10/20 05/24/20 05/23/20 History 0.5mg hydrOXYzine HCL [Atarax] 25 mg PO DAILY PRN 05/10/20 05/24/20 Unknown History HYDROmorphone [Dilaudid] 2 mg PO Q6HR PRN 05/24/20 05/24/20 Unknown History - Physical exam General appearance: mild distress (Right flank discomfort, mild) Lungs: Normal air movement Gastrointestinal: normal Extremities: normal temperature, normal color - Brief post op/procedure progress note Date of procedure: 05/24/20 Pre-op diagnosis: Right renal calculi Post-op diagnosis: same Procedure: 1. Right nephrostogram 2. Fluoroscopic guided removal of the right nephrostomy tube Anesthesia: local Surgeon: DIANA CANAS Estimated blood loss: minimal Condition: stable - Hospital course Hospital course: Tolerated the procedure without issue. Ready for discharge. - Disposition Condition at discharge: Stable Disposition: [id number] TO HOME OR SELFCARE - Discharge Diagnoses (1) Hypertension Status: Acute Qualifiers: (2) Obesity hypoventilation syndrome Status: Acute (3) Renal colic on right side Status: Acute Short Stay Discharge Plan Activity: advance as tolerated Weight Bearing Status: Weight Bear as Tolerated Diet: regular Wound: keep clean and dry (keep clean and dry with gauze until site has completely healed ; may take 7 to 10 days ; do not shower until healed. Can clean with small amount of betadine to prevent infection.) Follow up with: STUART RONQUILLO MD [Primary Care Provider] - 7 Days
--- NOTE | 2020-05-24 15:42 | Operative Report ---
Operative Report Operative Report: EXAM: Right sided nephrostogram DATE: 05/24/2020 RN TEACHER: DIANA CANAS MD INDICATION: Right indwelling large-bore nephrostomy tube without output for over 1 week. MEDICATIONS: Please see nursing report for full details. DEVICES: None CONTRAST: Please see Reactor Fueling Supervisor report for full details PROCEDURE: The risks, benefits and alternatives were discussed with the patient; written informed consent was obtained. The patient was prepped and draped in a sterile fashion in a prone position. The right flank was prepped and draped in a sterile fashion. Contrast was injected through the indwelling nephrostomy tube. Multiple projections were obtained demonstrating no contrast passing into the collecting system with contrast noted passing along the tract in the subcutaneous tissue. Angled catheter and 0.035 inch Glidewire were then advanced through the Arnett catheter in an attempt to recanalize the tract. This was ultimately not successful as there is no passage back into the tract. After this was performed, Dr. Santos was contacted and agreed with tube removal. Arnett catheter was then removed. 4 x 4 applied. Recommended changing daily. Recommending not shower until site was completely healed. Can use small amounts of Betadine to clean the area if necessary. FINDINGS: The tube was outside of the collecting system in the subcutaneous tissue. IMPRESSION: Tube not within the collecting system. Tube was subsequently removed under fluoroscopic guidance.
[2020-05-24 16:21] VITALS: BP 129/71
== END 2020-05-24 16:29 | disposition home or self-care (01) ==
LOC: CATHLABREC 13:34
PROVIDERS: ATTEND Radiology Diagnostic Radiology
DX: Z46.6 Encounter for fitting and adjustment of urinary device (principal); F17.210 Nicotine dependence, cigarettes, uncomplicated; E66.9 Obesity, unspecified; I10 Essential (primary) hypertension; G47.30 Sleep apnea, unspecified; F41.9 Anxiety disorder, unspecified; Z88.0 Allergy status to penicillin; Z88.6 Allergy status to analgesic agent; Z88.8 Allergy status to other drugs, medicaments and biological substances; Z79.899 Other long term (current) drug therapy; Z87.440 Personal history of urinary (tract) infections; Z68.41 Body mass index [BMI] 40.0-44.9, adult; Z90.49 Acquired absence of other specified parts of digestive tract; Z90.710 Acquired absence of both cervix and uterus; Z98.891 History of uterine scar from previous surgery; Z87.442 Personal history of urinary calculi; Z98.890 Other specified postprocedural states
CPT/HCPCS: 50389; C1769; J7050; Q9967

== ENCOUNTER 2020-06-21 08:35 | Day surgery (SDC) | payer MEDICAID ==
[2020-06-21] MEDS ORDERED: LACTATED RINGERS 1,000 ML ONE ×2 (09:12→09:34)
--- NOTE | 2020-06-21 09:25 | Anesthesia Consultation ---
Anesthesia Consult and Med Hx Date of service: 06/21/20 - Airway Anesthetic Teeth Evaluation: Good ROM Head & Neck: Adequate Mental/Hyoid Distance: Adequate Mallampati Class: Class II Intubation Access Assessment: Probably Good - Pre-Operative Health Status ASA Pre-Surgery Classification: ASA3 Proposed Anesthetic Plan: General - Pulmonary Hx Smoking: Yes (STARTED 2015. 06/12 PPD) Hx Asthma: Yes (INHALER PRN) Hx Respiratory Symptoms: No (+2FS) SOB: No COPD: No Home Oxygen Therapy: No Hx Pneumonia: No Hx Sleep Apnea: Yes (DX SLEEP APNEA WITH CPAP USE.) - Cardiovascular System Hx Hypertension: Yes (SINCE AGE 18 YRS OLD) Hx Coronary Artery Disease: No Hx Heart Attack/AMI: No Hx Angina: No Hx Percutaneous Transluminal Coronary Angioplasty (PTCA): No Hx Cardia Arrhythmia: No Hx Pacemaker: No Hx Internal Defibrillator: No Hx Valvular Heart Disease: No Hx Heart Murmur: No Hx Peripheral Vascular Disease: No - Central Nervous System Hx Neuromuscular Disorder: Yes (Plantar fasciitis) Hx Seizures: No CVA: No Hx Back Pain: Yes Hx Psychiatric Problems: Yes (SEVERE PANIC ATTACKS) - Gastrointestinal Hx Ulcer: No Hx Gastroesophageal Reflux Disease: No - Endocrine Hx Renal Disease: Yes (KIDNEY STONES) Hx End Stage Renal Disease: No Hx Cirrhosis: No Hx Liver Disease: No Hx Insulin Dependent Diabetes: No Hx Non-Insulin Dependent Diabetes: No Hx Thyroid Disease: No Hx Hypothyroidism: No Hx Hyperthyroidism: No - Hematic Hx Anemia: No Hx Sickle Cell Disease: No - Other Systems Hx Alcohol Use: No Hx Substance Use: No Hx Cancer: No Hx Obesity: Yes (BMI 43)
--- NOTE | 2020-06-21 09:27 | Anesthesia Day of Surgery ---
Anesthesia Day of Surgery - Day of Surgery Patient Examined: Yes Patient H&P Reviewed: Yes Patient is NPO: Yes
[2020-06-21] MEDS ORDERED: LACTATED RINGERS 1000 ML IV SOLN IV SCH (09:30)
[2020-06-21] MEDS ORDERED: MIDAZOLAM 2 MG/2 ML INJ IV PRN (09:30)
[2020-06-21] MEDS ORDERED: SCOPOLAMINE TRANSDERMAL PATCH 72 HR TD NR (09:30)
[2020-06-21] MEDS ORDERED: HYDROmorphone 1 MG/1 ML INJ IV PRN ×2 (09:42)
[2020-06-21] MEDS ORDERED: GLYCOPYRROLATE 0.4 MG/2 ML INJ ONE (09:45)
[2020-06-21] MEDS ORDERED: propofoL 200 MG/20 ML VIAL IV ONE (09:45)
[2020-06-21] MEDS ORDERED: PHENYLEPHRINE/NS 1,000 MCG/10 ML SYRINGE (OR USE) IV ONE (09:45)
[2020-06-21] MEDS ORDERED: fentaNYL 100 MCG/2 ML INJ ONE (09:45)
[2020-06-21] MEDS ORDERED: dexAMETHasone 20 MG/5 ML VIAL ONE (09:45)
[2020-06-21] MEDS ORDERED: LIDOCAINE MPF (2%) 20 MG/1 ML VIAL 5 ML ONE (10:00)
[2020-06-21] MEDS ORDERED: ONDANSETRON 4 MG/2 ML INJ IV PRN (10:00)
[2020-06-21] MEDS ORDERED: WATER FOR IRRIG STERILE 2000 ML IR ONE (11:21)
--- NOTE | 2020-06-21 11:45 | Fluoroscopy Report ---
INTRAOPERATIVE FLUOROSCOPY: RETROGRADE UROGRAPHY INDICATION / CLINICAL INFORMATION: RIGHT RENAL STONE. TECHNIQUE: Intraoperative spot images were obtained during the procedure. FINDINGS: Images show right retrograde pyelogram and ureteroscopy with placement of ureteral stent. 5 cc Omnipa que 300 used. See operative/procedure note by performing physician for full details. Fluoroscopy Time: 2.1 minutes. Fluoroscopy Images: 5. Signer Name: Germán Kimball MD Signed: 06/21/2020 11:41 AM Workstation Name: [id number]
[2020-06-21] MEDS ORDERED: PHENAZOPYRIDINE 200 MG TAB PO ONE (12:00)
[2020-06-21] MEDS ORDERED: oxyCODONE /ACETAMINOPHEN 5-325MG TAB ONE (12:09)
--- NOTE | 2020-06-21 12:10 | Post Operative Note ---
Date of procedure: 06/21/20 Pre-op diagnosis: r upj stone Post-op diagnosis: same Findings: as above Procedure: r ureteroscopy stent Anesthesia: DOA Surgeon: SKY VILLARREAL Estimated blood loss: none Pathology: none Condition: stable Disposition: PACU
--- NOTE | 2020-06-21 12:12 | Discharge Summary ---
Short Stay Discharge Plan Activity: other (no straining ) Weight Bearing Status: Full Weight Bearing Diet: low fat, low cholesterol, low salt Special Instructions: other (inc fluids ) Durable Medical Equipment Needed Upon Discharge: other Additional Instructions: APPOINTMENT- DR VILLARREAL WANTS TO SEE YOU IN 7 DAYS. CALL FOR APPOINTMENT AND FOR ANY QUESTIONS OR CONCERNS RELATED TO YOUR SURGERY. REMOVE SCOPOLAMINE PATCH BEHIND EAR. IN 48-72 HOURS-USE GLOVES AND WASH HANDS AFTER. DIET - LOW SALT, LOW FAT, LOW CHOLESTEROL. DO INCREASE FLUIDS BY MOUTH-- ABOUT 8 CUPS WATER PER DAYS Follow up with: TREVON TORRES MD [Primary Care Provider] - 7 Days SKY VILLARREAL MD [Staff Physician] - 7 Days Forms: [facility]
[2020-06-21] MEDS ORDERED: oxyCODONE /ACETAMINOPHEN 5-325MG TAB PO ONE (13:00)
--- NOTE | 2020-06-21 13:00 | Operative Report ---
PREOPERATIVE DIAGNOSES: Right ureteropelvic junction stone, ureteropelvic junction narrowing, previous attempted percutaneous nephrolithotomy. POSTOPERATIVE DIAGNOSES: Right ureteropelvic junction stone, ureteropelvic junction narrowing, previous attempted percutaneous nephrolithotomy. PROCEDURES: Cystoscopy, retrograde, right ureteroscopy and laser. SURGEON: Dr. Santos. ANESTHESIA: General. FINDINGS: This is a woman who presented with severe right flank pain. We tried a percutaneous nephrolithotomy. They could not get good access, so we took the tube out after it fell out actually at home. She understands she will wear a stent. She said initially she refused the stent and now she presents for treatment from below. DESCRIPTION OF PROCEDURE: The patient was brought to the operating room and placed on the operating table. Following induction of anesthesia, placed in lithotomy position, prepped and draped in usual sterile fashion. Cystourethroscopy showed a normal ureter with a filling defect in the renal pelvis. We used the dilator that went up to the renal pelvis without difficulty. Flexible ureteroscopy showed the stone. We broke it up into hundreds of small pieces. The patient tolerated the procedure well. A double J coiled in the kidney and bladder. She was brought to recovery room in stable condition. No complications. JOB# [id number]/[id number]
[2020-06-21] MEDS ORDERED: PHENAZOPYRIDINE 100 MG TAB PO SCH (14:00)
[2020-06-21 16:25] VITALS: BP 143/72
== END 2020-06-21 08:36 | disposition home or self-care (01) ==
LOC: OR 08:35
PROVIDERS: ATTEND Urology
DX: N20.1 Calculus of ureter (principal); N13.5 Crossing vessel and stricture of ureter without hydronephrosis; F17.210 Nicotine dependence, cigarettes, uncomplicated; E66.2 Morbid (severe) obesity with alveolar hypoventilation; I10 Essential (primary) hypertension; J45.909 Unspecified asthma, uncomplicated; F41.9 Anxiety disorder, unspecified; Z88.6 Allergy status to analgesic agent; Z88.8 Allergy status to other drugs, medicaments and biological substances; Z88.0 Allergy status to penicillin; Z79.899 Other long term (current) drug therapy; Z87.440 Personal history of urinary (tract) infections; Z90.49 Acquired absence of other specified parts of digestive tract; Z98.891 History of uterine scar from previous surgery; Z90.710 Acquired absence of both cervix and uterus; Z98.890 Other specified postprocedural states
CPT/HCPCS: 52356; 74420; A4217; C1726; C1758; C1769; C2617; J1100; J1170; J1956; J2250; J2370; J2405; J2704; J3010; J7120; Q9967